=== PATIENT | female | born 1960 | race Two or more races ===

== ENCOUNTER 2017-03-17 06:49 | Inpatient (IN) | payer OTHER ==
[2017-03-14 12:33] VITALS: BMI 25.5
[2017-03-17] MEDS ORDERED: DEXAMETHASONE SOD PHOSPHATE 4 MG/1 ML VIAL ONE (07:21)
[2017-03-17] MEDS ORDERED: fentaNYL CITRATE 250 MCG/5 ML VIAL ONE (07:21)
[2017-03-17] MEDS ORDERED: ePHEDrine SULFATE 50 MG/1 ML AMPULE ONE ×2 (07:21→08:13)
[2017-03-17] MEDS ORDERED: PROPOFOL 20 ML ONE ×22 (07:21→11:42)
[2017-03-17] MEDS ORDERED: PHENYLEPHRINE HCL 10 MG/1 ML SINGLE DOSE VIAL ONE (07:21)
[2017-03-17] MEDS ORDERED: SUCCINYLCHOLINE CHLORIDE 200 MG/10 ML VIAL ONE (07:21)
[2017-03-17] MEDS ORDERED: LIDOCAINE HCL/PF 2% SDV 5ML VIAL ONE (07:21)
[2017-03-17] MEDS ORDERED: MIDAZOLAM HCL 2 MG/2 ML SINGLE DOSE VIAL ONE ×2 (07:22)
[2017-03-17] MEDS ORDERED: ROCURONIUM BROMIDE 50 MG/5 ML VIAL ONE (07:22)
[2017-03-17] MEDS ORDERED: HEPARIN NA (PORCINE) 5,000 UNITS/ML 1ML VIAL ONE ×2 (07:29→07:33)
[2017-03-17] MEDS ORDERED: THROMBIN (BOVINE) 5,000 UNIT VIAL TP ONE (07:29)
[2017-03-17] MEDS ORDERED: DESFLURANE GAS 240 ML BOTTLE IH ONE (07:30)
[2017-03-17] MEDS ORDERED: SODIUM CHLORIDE 0.9% P/F 10 ML VIAL IJ ONE (08:12)
[2017-03-17] MEDS ORDERED: VANCOMYCIN 1,000 MG VIAL (RESTRICTED TO ID ONLY) IVPB ONE (08:17)
[2017-03-17] MEDS ORDERED: CLINDAMYCIN 900 MG PREMIX BAG IVPB ONE (09:00)
[2017-03-17] MEDS ORDERED: MINERAL OIL 25 ML OIL ONE (11:00)
[2017-03-17] MEDS ORDERED: HYDROmorphone HCL CARPU-JECT 2 MG/1 ML DISP.SYRIN ONE (11:28)
[2017-03-17] MEDS ORDERED: ALBUMIN HUMAN 5% 250 ML IV SOLUTION IVPB ONE (13:00)
[2017-03-17] MEDS ORDERED: BENZOIN/ALOE VERA/STORAX/TOLU 58 ML BOTTLE ONE (14:08)
--- NOTE | 2017-03-17 14:40 | OP ---
Operative Note - Note: Operative Date: 03/17/17 Pre-Operative Diagnosis: 1. L4/5 anterolisthesis; instability. 2. L3-S1 spinal stenosis Operation: 1. L3, L4, L5 laminectomies. 2. L3-S1 foraminal decompressions. 3. L3/4, L4/5, L5/S1 PLIF. 4. L3-S1 PISF Surgeon: Juvencio Williamson Merchandise Flow Team Leader: Dino Williamson Anesthesiologist/INFORMATICS MANAGER: Ryland Chawla Anesthesia: General Specimens Removed: L3/4, L4/5, L5/S1 disc Estimated Blood Loss (mls): 700 Drains & Tubes with Location: 1 x superficial Bacilio drain SET TO GRAVITY - NOT SET TO SUCTION Drains, Volume Out (mls): 4,200 (3.7L crystalloid; 500cc albumin) Blood Volume Replaced (mls): 250 (cell saver) Operative Report Dictated: Yes
--- NOTE | 2017-03-17 14:43 | PN ---
Progress Note (short form) - Note Progress Note: 56F s/p L3, L4, L5 laminectomies, L3-S1 foraminal decompressions, L3/4, L4/5, L5 /S1 PLIF, & L3-S1 PISF POD #0. -Admit to ICU post-op. -Admit to medicine hospitalist service. -Pain control. -Incentive spirometry/aggressive pulmonary toilet. -Mechanical DVT PPx. only. -PT/OT/Rehab, OOB. -WBAT B/L LE. -1 x superficial Bacilio drain SET TO GRAVITY -- DO NOT SET DRAIN TO SUCTION . -Boateng care. -D/C boateng when patient is ambulating. -Litzy-op Abx x 24 hrs. -Discharge planning.
[2017-03-17] MEDS ORDERED: ALBUTEROL SO4 18 GM HFA INHALER IH SCH (14:45)
[2017-03-17] MEDS ORDERED: ACETAMINOPHEN 1000 MG/100 ML VIAL (NON FORMULARY) IVPB PRN ×2 (14:46→17:19)
[2017-03-17] MEDS ORDERED: KETOROLAC TROMETHAMINE 30 MG/1 ML VIAL IVPUSH PRN (14:46)
--- NOTE | 2017-03-17 14:54 | PN ---
Progress Note (short form) - Note Progress Note: -NPO until flatus.
[2017-03-17] MEDS ORDERED: LACTATED RINGERS SOLUTION 1,000 ML IV SCH ×2 (15:00→15:15)
[2017-03-17] MEDS ORDERED: PROMETHAZINE HCL 25 MG/1 ML VIAL IVPUSH PRN (15:05)
[2017-03-17] MEDS ORDERED: ONDANSETRON 4 MG/2 ML VIAL IVPUSH PRN ×2 (15:05)
[2017-03-17] MEDS ORDERED: PROMETHAZINE HCL 25 MG/1 ML VIAL IVPB PRN (15:05)
[2017-03-17] MEDS: HYDROmorphone *PCA* 10MG/50ML DISP.SYRIN PCA SCH (15:15)
[2017-03-17] MEDS ORDERED: BUDESONIDE/FORMETEROL FUMARATE 160/4.5 mcg INHALER IH SCH (15:30)
[2017-03-17] MEDS ORDERED: ACETAMINOPHEN INJECTION 100 ML IVPB ONE (15:55)
[2017-03-17] MEDS ORDERED: KETOROLAC TROMETHAMINE 30 MG/1 ML VIAL ONE ×2 (15:55→16:29)
[2017-03-17] MEDS ORDERED: HYDROmorphone *PCA* 10MG/50ML DISP.SYRIN PCA ONE (15:55)
[2017-03-17] MEDS ORDERED: ALBUTEROL SO4 0.083% IH SOL 2.5 MG/3 ML VIAL.NEB. NEB SCH (16:00)
[2017-03-17] MEDS ORDERED: CLINDAMYCIN 900 MG PREMIX IVPB 900 MG/50 ML BAG IVPB SCH (18:00)
[2017-03-17] MEDS ORDERED: PT OWN MED DRAWER 7, Y5N ONE (19:32)
[2017-03-17] MEDS: CLINDAMYCIN 900 MG PREMIX IVPB 900 MG/50 ML BAG IVPB SCH (19:38)
[2017-03-17] MEDS: ELECTROLYTE-148 SOLN 1,000 ML IV SCH (19:43)
[2017-03-17] MEDS ORDERED: VANCOMYCIN 1,000 MG in DEXTROSE 5%-WATER - 250 ML IVPB ONE (20:00)
[2017-03-17] MEDS ORDERED: ALBUTEROL SO4 18 GM HFA INHALER IH PRN (20:45)
--- NOTE | 2017-03-17 21:16 | CONSULT ---
Consult Consult Specialty:: Pulm/CCM Reason for Consultation:: s/p L3, L4, L5 laminectomies, L3-S1 foraminal decompressions - History of Present Illness History of Present Illness: This is a 56 yo woman PMH: HL, asthma, seizure d/o of unclear etiology had two seizures in 2017 currently on keprra and chronic back and sciatica pain r/t L4/5 anterolisthesis; instability and L3-S1 spinal stenosis now s/p L3, L4, L5 laminectomies, L3-S1 foraminal decompressions. Patiernt seen in ICU VSS, pain controlled. - History Source History Provided By: Patient, Medical Record Limitations to Obtaining History: No Limitations - Past Medical History DIESEL POWER MECHANIC: Yes: Seizure Cardio/Vascular: Yes: Hyperlipdemia Pulmonary: Yes: Asthma - Past Surgical History Past Surgical History: Yes: Laminectomy - Alcohol/Substance Use Hx Alcohol Use: Yes (ON VACATION) - Smoking History Smoking history: Former smoker Have you smoked in the past 12 months: Yes Home Medications - Allergies Allergies/Adverse Reactions: Allergies Allergy/AdvReac Type Severity Reaction Status Date / Time ceftriaxone [From Rocephin] Allergy Hives Verified 03/14/17 12:19 moxifloxacin [From Avelox] Allergy Hives Verified 03/14/17 12:19 - Home Medications Home Medications: Ambulatory Orders Aclidinium [place] [Tudorza Pressair] 400 mcg IH DAILY 03/14/17 Albuterol 0.083% Nebulizer [place] [Ventolin 0.083%] 1 neb NEB QID 03/14/17 Albuterol Sulfate Inhaler - [Ventolin Hfa Inhaler -] 2 inh PO Q6H 03/14/17 Cyclobenzaprine HCl 10 mg PO HS PRN 03/14/17 Folic Acid 1 mg PO DAILY 03/14/17 Levetiracetam [Keppra] 250 mg PO DAILY 03/14/17 Montelukast Sodium [Singulair] 10 mg PO DAILY 03/14/17 Oxycodone HCl/Acetaminophen [Percocet 10-325 mg Tablet] 1 each PO BID 03/14/17 Primidone [Mysoline] 250 mg PO DAILY 03/14/17 Roflumilast [Daliresp] 500 mcg PO DAILY 03/14/17 Ropinirole HCl [Requip] 3 mg PO HS 03/14/17 Salmeterol/Fluticasone [Advair 500Mcg/50Mcg] 1 inh PO BID 03/14/17 Simvastatin 40 mg PO DAILY 03/14/17 Zolpidem Tartrate [Ambien Cr] 12.5 mg PO HS 03/14/17 Family Disease History - Family Disease History Family History: Unremarkable Review of Systems - Review of Systems Musculoskeletal: reports: Muscle Pain, Muscle Cramps Physical Exam Vital Signs: Vital Signs Temperature 98.0 F 03/17/17 17:15 Pulse Rate 101 H 03/17/17 20:00 Respiratory Rate 21 03/17/17 20:00 Blood Pressure 108/74 03/17/17 20:00 O2 Sat by Pulse Oximetry (%) 96 03/17/17 20:23 Current Medications Acetaminophen (Ofirmev Injection -) 1,000 mg IVPB Q8H PRN PRN Reason: PAIN LEVEL 6-10 Stop: 03/18/17 14:45 Albuterol Sulfate (Ventolin 0.083% Nebulizer Soln -) 1 amp NEB RQID KAMI Albuterol Sulfate (Ventolin Hfa Inhaler -) 2 puff IH Q6H K[facility]I Budesonide/Formoterol Fumarate (Symbicort 160/4.5mcg -) 2 puff IH BID K[facility]I Chlorhexidine Gluconate (Hibiclens For Decolonization -) 1 applic TP HS KAMI Hydromorphone HCl (Dilaudid Mine Engineering Supervisor -) 10 mg BATTERY STACKER BATTERY STACKER KAMI PRN Reason: Protocol Stop: 03/24/17 15:05 Last Admin: 03/17/17 15:15 Dose: 10 mg Clindamycin Phosphate (Cleocin 900 Mg Premix Ivpb -) 900 mg in 50 mls @ 100 mls /hr IVPB Q8H-IV KAMI Stop: 03/18/17 10:29 Last Admin: 03/17/17 19:38 Dose: 100 mls/hr Parenteral Electrolytes (Plasma-Lyte 148 -) 1,000 mls @ 125 mls/hr IV ASDIR KAMI Last Admin: 03/17/17 19:43 Dose: 125 mls/hr Vancomycin HCl 1,000 mg/ (Dextrose) 250 mls @ 166.667 mls/hr IVPB ONCE ONE PRN Reason: Protocol Stop: 03/17/17 21:29 Last Admin: 03/17/17 20:16 Dose: 166.667 mls/hr Ketorolac Tromethamine (Toradol Injection -) 30 mg IVPUSH Q6H PRN PRN Reason: PAIN LEVEL 6-10 Stop: 03/22/17 14:45 Levetiracetam (Keppra -) 250 mg PO DAILY [facility] Montelukast Sodium (Singulair -) 10 mg PO HS [facility] Mupirocin (Bactroban Ointment (For Decolonization) -) 1 applic NS BID [facility] Stop: 03/22/17 21:59 Non-Formulary Medication (Aclidinium [place] [Tudorza Pressair]) 400 mcg IH DAILY [facility] Ondansetron HCl (Zofran Injection) 4 mg IVPUSH Q6H PRN PRN Reason: NAUSEA AND/OR VOMITING Primidone (Mysoline -) 250 mg PO DAILY [facility] Promethazine HCl (Phenergan Injection -) 12.5 mg IVPUSH Q6H PRN PRN Reason: NAUSEA-FOR RESCUE AFTER 15 MIN Ropinirole HCl (Requip -) 3 mg PO HS [facility] Constitutional: Yes: Calm Cardiovascular: Yes: Regular Rate and Rhythm, S1, S2 Respiratory: Yes: CTA Bilaterally Gastrointestinal: Yes: Normal Bowel Sounds, Soft Edema: No Wound/Incision: Yes: Other (DEBBIE w/ sangounous drainage) Neurological: Yes: Alert, Oriented Psychiatric: Yes: Alert, Oriented Problem List - Problems (1) Asthma Code(s): J45.909 - UNSPECIFIED ASTHMA, UNCOMPLICATED (2) Combined hyperlipidemia Code(s): E78.2 - MIXED HYPERLIPIDEMIA (3) Back pain at L4-L5 level Code(s): M54.5 - LOW BACK PAIN (4) Seizure disorder Code(s): G40.909 - EPILEPSY, UNSP, NOT INTRACTABLE, WITHOUT STATUS EPILEPTICUS Assessment/Plan ICU overnight monitor DEBBIE drainage pain control ABX per surgery incentive [place] O2 for sat >90% PT/OT cont AED advance diet per surgery bowel regimen DVT prophylaxis: SCDs Boerem ACNP Pulm/CCM CCT: 35m
[2017-03-17] MEDS: ALBUTEROL SO4 0.083% IH SOL 2.5 MG/3 ML VIAL.NEB. NEB SCH (21:30)
[2017-03-17] MEDS: MUPIROCIN 2% TOPICAL OINTMENT FOR DECOLONIZATION NS SCH (22:00)
[2017-03-17] MEDS ORDERED: rOPINIRole HCL 3 MG TABLET PO SCH (22:00)
[2017-03-17] MEDS: CHLORHEXIDINE GLUCONATE 4% CLEANSER FOR DECOLONIZATION TP SCH (22:00)
[2017-03-17] MEDS: rOPINIRole HCL 3 MG TABLET PO SCH (22:01)
[2017-03-17] MEDS: BUDESONIDE/FORMETEROL FUMARATE 160/4.5 mcg INHALER IH SCH (22:01)
[2017-03-17] MEDS: MONTELUKAST NA 10 MG TABLET PO SCH (22:01)
[2017-03-18] MEDS: CLINDAMYCIN 900 MG PREMIX IVPB 900 MG/50 ML BAG IVPB SCH ×2 (01:43→10:09)
[2017-03-18 06:26] LABS: HEMATOCRIT 22.6 % (32.4-45.2); HEMOGLOBIN 7.4 GM/dL (10.7-15.3); MCH 30.5 pg (25.7-33.7); MCHC 32.6 g/dl (32.0-36.0); MEAN CELL VOLUME 93.4 fl (80-96); MEAN PLT VOLUME 9.2 fl (7.5-11.1); PLATELET COUNT 204 K/MM3 (134-434); RBC 2.42 M/mm3 (3.60-5.2); RDW 14.3 % (11.6-15.6); WHITE BLOOD COUNT 9.3 K/mm3 (4.0-10.0)
[2017-03-18] MEDS: DOCUSATE SODIUM 100 MG CAPSULE (FP) PO SCH ×3 (06:27→21:57)
[2017-03-18 06:51] LABS: ANION GAP 7 (8-16); BLOOD UREA NITROGEN 12 mg/dL (7-18); CALCIUM 7.1 mg/dL (8.5-10.1); CHLORIDE 107 mmol/L (98-107); CO2 28 mmol/L (21-32); CREATININE 0.5 mg/dL (0.55-1.02); GLUCOSE,RANDOM 107 mg/dL (74-106); POTASSIUM 3.9 mmol/L (3.5-5.1); SODIUM 142 mmol/L (136-145)
--- NOTE | 2017-03-18 07:16 | PN ---
Physical Exam: SUBJECTIVE: Patient seen and examined. S/p laminectomy. Had clears yesterday post surgery but has not passed flatus, so surgeon asked to be NPO till after flatus. Pain controlled on meds. C/o of L lower extremity weakness OBJECTIVE: Vital Signs Period Temp Pulse Resp BP Sys/Chowdary Pulse Ox Last 24 Hr 98 F-98.4 F 74-101 12-24 82-133/56-87 96-100 Intake & Output 03/17/17 03/17/17 03/18/17 11:59 23:59 11:59 Intake Total 3700 1650 1700 Output Total 925 1045 880 Balance 2775 605 820 Weight 72.802 kg Intake: IV 3700 300 1500 Plasma-Lyte 148 - 1,000 1500 ml @ 125 mls/hr IV ASDIR KAMI Rx#:[id number] Oral 600 200 Blood Product 750 Output: Drainage 245 80 Left Flank 120 80 Urine 225 800 800 Boateng 200 800 Estimated Blood Loss 700 Other: Voiding Method Indwelling Catheter Weight Measurement Method Built in [facility] GENERAL: The patient is awake, alert, out of bed in chair (with assistance) off NC sating well on RA. Baseline essential tremors noted. HEAD: Normal with no signs of trauma. EYES: Bilaterally reactive pupils. ENT: oropharynx clear without exudates, moist mucous membranes. NECK: Trachea midline, full range of motion, supple. LUNGS: reduced breath sounds bases HEART: Regular rate and rhythm, S1, S2 ABDOMEN: Soft, nontender, nondistended, reduced bowel sounds EXTREMITIES: 2+ pulses, warm, well-perfused, no edema, compression socks on. RLE - 5/5 dorsi/plantar flexion, LLE 4/5- dorsi/plantar flexion NEUROLOGICAL: Cranial nerves II through XII grossly intact. Normal speech, gait not observed. L flank drain, L midline back dressing PSYCH: Normal mood, normal affect. Lines: Boateng, RUE, LUE, L flank drain CBC, BMP 03/18/17 05:00 03/18/17 05:00 Laboratory Results - last 24 hr 03/17/17 03/17/17 03/18/17 07:00 08:03 05:00 WBC 9.3 RBC 2.42 L Hgb 7.4 L Hct 22.6 L MCV 93.4 MCH 30.5 MCHC 32.6 RDW 14.3 Plt Count 204 MPV 9.2 Sodium Potassium Chloride Carbon Dioxide Anion Gap BUN Creatinine Random Glucose Calcium Blood Type A NEGATIVE A NEGATIVE Antibody Screen Negative Crossmatch IS Only See Detail See Detail 03/18/17 05:00 WBC RBC Hgb Hct MCV MCH MCHC RDW Plt Count MPV Sodium 142 Potassium 3.9 Chloride 107 Carbon Dioxide 28 Anion Gap 7 L BUN 12 Creatinine 0.5 L Random Glucose 107 H Calcium 7.1 L Blood Type Antibody Screen Crossmatch IS Only Active Medications Generic Name Dose Route Start Last Admin Trade Name Freq PRN Reason Stop Dose Admin Acetaminophen 1,000 mg 03/17/17 17:19 Ofirmev Injection - IVPB 03/18/17 14:45 Q8H PRN PAIN LEVEL 6-10 Albuterol Sulfate 1 amp 03/17/17 20:00 Ventolin 0.083% Nebulizer Soln - NEB RQID KAMI Albuterol Sulfate 2 puff 03/17/17 20:45 Ventolin Hfa Inhaler - IH Q6H PRN SHORT OF BREATH/WHEEZING Budesonide/Formoterol Fumarate 2 puff 03/17/17 22:00 03/17/17 22:01 Symbicort 160/4.5mcg - IH 2 puff BID KAMI Administration Chlorhexidine Gluconate 1 applic 03/17/17 22:00 03/17/17 22:00 Hibiclens For Decolonization - TP 1 applic HS KAMI Administration Docusate Sodium 100 mg 03/18/17 06:00 03/18/17 06:27 Colace - PO 100 mg TID KAMI Administration Hydromorphone HCl 10 mg 03/17/17 15:15 03/17/17 15:15 Dilaudid Physician Practice Consultant - BEAR KEEPER 03/24/17 15:05 10 mg BEAR KEEPER KAMI Administration Protocol Clindamycin Phosphate 900 mg in 50 mls @ 100 mls/hr 03/17/17 18:00 03/18/17 01:43 Cleocin 900 Mg Premix Ivpb - IVPB 03/18/17 10:29 100 mls/hr Q8H-IV KAMI Administration Parenteral Electrolytes 1,000 mls @ 125 mls/hr 03/17/17 17:19 03/17/17 19:43 Plasma-Lyte 148 - IV 125 mls/hr ASDIR KAMI Administration Ketorolac Tromethamine 30 mg 03/17/17 17:19 Toradol Injection - IVPUSH 03/22/17 14:45 Q6H PRN PAIN LEVEL 6-10 Levetiracetam 250 mg 03/18/17 10:00 Keppra - PO DAILY KAMI Montelukast Sodium 10 mg 03/17/17 22:00 03/17/17 22:01 Singulair - PO 10 mg HS KAMI Administration Mupirocin 1 applic 03/17/17 22:00 03/17/17 22:00 Bactroban Ointment (For Decolonization) - NS 03/22/17 21:59 1 applic BID KAMI Administration Ondansetron HCl 4 mg 03/17/17 15:05 Zofran Injection IVPUSH Q6H PRN NAUSEA AND/OR VOMITING Primidone 250 mg 03/18/17 10:00 Mysoline - PO DAILY KAMI Promethazine HCl 12.5 mg 03/17/17 15:05 Phenergan Injection - IVPUSH Q6H PRN NAUSEA-FOR RESCUE AFTER 15 MIN Ropinirole HCl 3 mg 03/17/17 22:00 03/17/17 22:01 Requip - PO 3 mg HS KAMI Administration Senna 2 tab 03/18/17 22:00 Senna - PO HS KAMI Tiotropium [place] 1 puff 03/18/17 10:00 Spiriva - IH DAILY KAMI ASSESSMENT/PLAN: 56 yo F with PMHx asthma, seizure disorders, chronic back pain now POD1 s/p L3.L4 laminectomy, L3-S1 decompressions Neuro/KATLIN: chronic back pain s/p laminectomy Seizure disorder Essential tremors AAO x3 Ropinorole Primidone 250mg PO daily Keppra 250mg PO daily Clindamycin -perioperative- given Pain mx- Dilaudid, ketorolac, Iv tylenol Out of bed with assistance Physical therapy Incentive spirometry Requesting a rehab facility on discharge CBC Resp: Asthma On room air Singulair Spiriva Symbicort Albuterol inhaler Albuterol nebulizer GI/Renal/ Lytes/Lines NPO until passes flatus Boateng-D/c BMP Monitor Lines: LUE, RUE peripheral lines, L flank hong drain, boateng Prophylaxis: SCDs Dispo: Transfer out of ICU Visit type - Emergency Visit Emergency Visit: No - New Patient This patient is new to me today: Yes Date on this admission: 03/18/17 - Critical Care Critical Care patient: Yes Total Critical Care Time (in minutes): 37 Critical Care Statement: The care of this patient involved high complexity decision making to prevent further life threatening deterioration of the patient 's condition and/or to evaluate & treat vital organ system(s) failure or risk of failure. - Discharge Referral Referred to [facility] No
[2017-03-18 08:06] LABS: MAGNESIUM 1.6 mg/dL (1.8-2.4); PHOSPHOROUS 2.8 mg/dL (2.5-4.9)
[2017-03-18 08:10] LABS: ALBUMIN 2.6 g/dl (3.4-5.0); ALK PHOS 72 U/L (45-117); ANION GAP 6 (8-16); BILIRUBIN,TOTAL 0.4 mg/dL (0.2-1.0); BLOOD UREA NITROGEN 13 mg/dL (7-18); CALCIUM 7.1 mg/dL (8.5-10.1); CHLORIDE 108 mmol/L (98-107); CO2 28 mmol/L (21-32); CREATININE 0.5 mg/dL (0.55-1.02); GLUCOSE,RANDOM 107 mg/dL (74-106); POTASSIUM 3.9 mmol/L (3.5-5.1); SGOT/AST 25 U/L (15-37); SGPT/ALT 24 U/L (12-78); SODIUM 142 mmol/L (136-145); TOT PROT 4.9 g/dl (6.4-8.2)
[2017-03-18] MEDS: ALBUTEROL SO4 0.083% IH SOL 2.5 MG/3 ML VIAL.NEB. NEB SCH ×4 (08:13→21:00)
[2017-03-18] MEDS ORDERED: PT OWN MED DRAWER 7, Y5N ONE (09:51)
[2017-03-18] MEDS ORDERED: MONTELUKAST NA 10 MG TABLET PO SCH (10:00)
[2017-03-18] MEDS ORDERED: levETIRAcetam 250 MG TABLET (FP) PO SCH (10:00)
[2017-03-18] MEDS ORDERED: TIOTROPIUM BROMIDE 18 MCG/INH (DEVICE W/ 5 CAPSULES) IH SCH (10:00)
[2017-03-18] MEDS ORDERED: PRIMIDONE 250 MG TABLET PO SCH (10:00)
[2017-03-18] MEDS: KETOROLAC TROMETHAMINE 30 MG/1 ML VIAL IVPUSH PRN ×2 (10:20→16:33)
--- NOTE | 2017-03-18 11:06 | PN ---
Progress Note (short form) - Note Progress Note: Anesthesia postop note and pain management follow up 56 y/o f s/p GA for L3-S1 PLIF, dilaudid ACID TANK LINER for postop pain management POD#1, aaox3, vss, pain well controlled on aircraft line assembler, no complaints, will continue aircraft line assembler today. No anesthesia complications.
--- NOTE | 2017-03-18 11:24 | PN ---
Teaching Attending Note Name of Resident: Elizabeth Vieyra ATTENDING PHYSICIAN STATEMENT I saw and evaluated the patient. I reviewed the resident's note and discussed the case with the resident. I agree with the resident's findings and plan as documented. SUBJECTIVE: Pt seen and examined in the ICU. Pain controlled with current regimen. Nauseous with medications but improved with zofran. Reports LLE weakness. OBJECTIVE: Last Vital Signs Temp Pulse Resp BP Pulse Ox 98.3 F 96 H 17 96/69 96 03/18/17 10:00 03/18/17 10:00 03/18/17 10:00 03/18/17 10:00 03/17/17 20:23 Intake & Output 03/15/17 03/16/17 03/17/17 03/18/17 23:59 23:59 23:59 23:59 Intake Total 5350 1700 Output Total 1970 880 Balance 3380 820 Weight 72.802 kg Gen: NAD in chair Heart: RRR Lung: decreased breath sounds at the bases Abd: soft, nontender Ext: no edema CBC, BMP 03/18/17 05:00 03/18/17 05:00 Active Medications Acetaminophen (Ofirmev Injection -) 1,000 mg IVPB Q8H PRN PRN Reason: PAIN LEVEL 6-10 Stop: 03/18/17 14:45 Albuterol Sulfate (Ventolin 0.083% Nebulizer Soln -) 1 amp NEB RQID [facility] Last Admin: 03/18/17 08:13 Dose: 1 amp Albuterol Sulfate (Ventolin Hfa Inhaler -) 2 puff IH Q6H PRN PRN Reason: SHORT OF BREATH/WHEEZING Budesonide/Formoterol Fumarate (Symbicort 160/4.5mcg -) 2 puff IH BID [facility] Last Admin: 03/17/17 22:01 Dose: 2 puff Chlorhexidine Gluconate (Hibiclens For Decolonization -) 1 applic TP HS [facility] Last Admin: 03/17/17 22:00 Dose: 1 applic Docusate Sodium (Colace -) 100 mg PO TID [facility] Last Admin: 03/18/17 06:27 Dose: 100 mg Hydromorphone HCl (Dilaudid Advertising Specialist -) 10 mg MACHINE CUTTER MACHINE CUTTER [facility] PRN Reason: Protocol Stop: 03/24/17 15:05 Last Admin: 03/17/17 15:15 Dose: 10 mg Parenteral Electrolytes (Plasma-Lyte 148 -) 1,000 mls @ 125 mls/hr IV ASDIR [facility] Last Admin: 03/17/17 19:43 Dose: 125 mls/hr Ketorolac Tromethamine (Toradol Injection -) 30 mg IVPUSH Q6H PRN PRN Reason: PAIN LEVEL 6-10 Stop: 03/22/17 14:45 Last Admin: 03/18/17 10:20 Dose: 30 mg Levetiracetam (Keppra -) 250 mg PO DAILY [facility] Montelukast Sodium (Singulair -) 10 mg PO [facility] Last Admin: 03/17/17 22:01 Dose: 10 mg Mupirocin (Bactroban Ointment (For Decolonization) -) 1 applic NS BID [facility] Stop: 03/22/17 21:59 Last Admin: 03/17/17 22:00 Dose: 1 applic Ondansetron HCl (Zofran Injection) 4 mg IVPUSH Q6H PRN PRN Reason: NAUSEA AND/OR VOMITING Last Admin: 03/18/17 10:10 Dose: 4 mg Primidone (Mysoline -) 250 mg PO DAILY [facility] Promethazine HCl (Phenergan Injection -) 12.5 mg IVPUSH Q6H PRN PRN Reason: NAUSEA-FOR RESCUE AFTER 15 MIN Ropinirole HCl (Requip -) 3 mg PO HS [facility] Last Admin: 03/17/17 22:01 Dose: 3 mg Senna (Senna -) 2 tab PO [facility] Tiotropium [place] (Spiriva -) 1 puff IH DAILY [facility] ASSESSMENT AND PLAN: L4-L5 Anterolisthesis/Instability L3-S1 Spinal Stenosis s/p L3-L5 Laminectomies/L3-S1 Foraminal Decompressions/Fusions Asthma Seizure Disorder Hyperlipidemia Anemia - pain control - incentive spirometry - monitor drain output - inhaled bronchodilators - monitor H/H - rehab/PT - PO as tolerated - DVT prophylaxis - can transfer to floor if ok with surgery
[2017-03-18] MEDS: MUPIROCIN 2% TOPICAL OINTMENT FOR DECOLONIZATION NS SCH ×2 (11:41→21:56)
[2017-03-18] MEDS: levETIRAcetam 250 MG TABLET (FP) PO SCH (11:41)
[2017-03-18] MEDS: PRIMIDONE 250 MG TABLET PO SCH (11:41)
[2017-03-18] MEDS: TIOTROPIUM BROMIDE 18 MCG/INH (DEVICE W/ 5 CAPSULES) IH SCH (11:42)
[2017-03-18] MEDS: BUDESONIDE/FORMETEROL FUMARATE 160/4.5 mcg INHALER IH SCH ×2 (11:43→21:58)
--- NOTE | 2017-03-18 11:44 | OP ---
DATE OF OPERATION: 03/17/2017 SURGEON: Juvencio Williamson MD AGENCY SALES DEVELOPMENT ASSOCIATE: Dino Williamson MD PREOPERATIVE DIAGNOSIS: Spinal stenosis L3 through S1, with associated segmental instability due to spondylolisthesis L4-5. POSTOPERATIVE DIAGNOSIS: Spinal stenosis L3 through S1, with associated segmental instability due to spondylolisthesis L4-5. OPERATION PERFORMED: 1. Laminectomy L3, 4, 5, S1 with undercutting superior fasciectomy. 2. L3-4, L4-5, L5-S1 posterior lumbar interbody fusion with anterior arthrodesis and cage at each level. 3. Pedicle screw instrumentation L3 through S1. 4. Posterolateral arthrodesis L3 through S1. 5. Incidental durotomy with repair. 6. Use of biplanar fluoroscopy and intraoperative neural monitoring. 7. Use of bone marrow aspirate concentrate with autologous bone grafts. ANTIBIOTICS GIVEN: 1 g vancomycin, 900 mg clindamycin. BLOOD LOSS: Approximately 800 mL, 600 mL Cell Saver utilized. DESCRIPTION OF PROCEDURE: Patient brought in operating room, placed prone on gel rolls, carefully positioned pelvis into anteversion as best we could by extension of the hips as best we could, to best maintain lumbar lordosis. The skin was prepped with Betadine scrub solution, wiped with alcohol, Duraprep applied, a window drape applied. Preoperative lateral fluoroscopic x-ray helped align skin incision related to deep bony anatomy. In this position with all appropriate areas padded including strict attention to eyes, as well as ulnar nerves and brachial plexus, the skin was opened from the tip of the spinous process of L2 to the tip of the spinous process of S1. A subperiosteal dissection was performed, once the dissection had been taken down directly through the skin, subcutaneous fat, to the superior spinous region of the posterior elements of the spine, subperiosteal dissection down the spinous process, over the lamina, across the facet joints, into the valley of the intertransverse plane, up to the tips of the transverse processes. All bone was exposed for appropriate bone graft bed association. The ala of the sacrum was also was denuded of soft tissue. Lateral fluoroscopic x-ray helped orientate in terms of level to be operated on. Using [place] rongeurs, number 5, 4 and 6 and [place] up-cuts, the entire laminae of L3-4-5 resected with all ligamentum flavum. Significant diffuse spinal stenosis encountered at most areas. In order to excise the superior facets, osteotomies were performed longitudinally from L3 right down to S1, thus splitting the pars interarticularis, taking out the inferior aspect of each facet, and this gave easy access to the superior stenosing facets of each level and each one subsequently subjected to an undercutting fasciectomy. The entire thickened dura was completely freed. A small dural defect; the arachnoid was intact, and we repaired the small dural tear with 6-0 Prolene suture. Valsalva maneuver revealed that it was completely sealed. Once this had been performed, each disk was dealt with separately. Theca was retracted at L3-4 as well as L4-5 from the right to the left, at L5-S1 from the left to right. Once the theca had been retracted, the epidural veins were cauterized with bipolar Bovie, the disks were clearly identified. The theca held out of harm's way and each disk treated in exactly the same way with elliptical annulectomy, each subjected to shaving up to size 11. All disk material was removed with pituitary rongeurs. Serrated curets helped insure that the superior and inferior end plates of each disk space and disk level was free of any soft tissues. Once the disks were emptied out completely and end plates revealed healthy bleeding bone, each interbody space was filled with autologous bone that was harvested from the posterior elements, milled in a [place] mill, packed into the interbody space in each cage seated, for each level was a 22 x 12 mm 5-degree lordotic cage, each one packed with graft. The pedicles then were identified using anatomic guidelines and a drill with a 4-5 drill bit was placed into each pedicle. The pedicle screws measured 40 x 6 mm. The rods were contoured to the actual screw heads prior to insertion of screw head, each screw was tested with intraoperative neural monitoring. Each screw was verified with lateral fluoroscopic x-ray. Each screw was safe in terms of all neural monitor parameter readings except in the left S1 screw measured 10 mA, but the screw was carefully inspected, and the entire pedicle on the medial side was palpated. There was no breach of any screw that could be palpated. We do know that this is acceptable for S1 at a reading of 10. The rods were fixed with the appropriate cap devices and appropriate persuasion equipment. No crosslink utilized. Once the instrumentation had been completed and each interbody cage had been seated, laparoscopic x-rays revealed excellent positioning of the implants. The tissues were washed thoroughly with saline. The intertransverse plane was packed with bone graft. This was a combination of autologous bone with expansion of bone marrow putty and allograft strips. These demineralized strips were placed in each level, each one soaked in concentrated bone marrow aspirate concentrate. Thorough lavage achieved, performed. No complications. Closure as follows. After trimming of the erectus spinae muscle with Huggins scissors, all necrotic and damaged tissue and muscle was removed, the tissues were closed as follows. Fascia 1 Vicryl, subcutaneous 1 and 2-0 Vicryl, skin 3-0 Monocryl with Steri-Strips. Drainage, a superficial Bacilio drain inserted with no suction. Light dry dressing applied. Overall comment: Operation went extremely well, no complications. MD BEBA Santo/[id number] MTDD
[2017-03-18] MEDS: HYDROmorphone *PCA* 10MG/50ML DISP.SYRIN PCA SCH (15:15)
--- NOTE | 2017-03-18 18:32 | HP ---
CHIEF COMPLAINT: PCP: HISTORY OF PRESENT ILLNESS: 56 year-old female with a PMH significant for HLD, asthma, seizure disorder and L4-L5 anterolisthesis/instability, and L3-S1 spinal stenosis. Patient was admitted to the hospital on 03/17/[address] Juvencio Williamson. Patient is s/p L3- L4-L5 laminectomies, L3-S1 foraminal decompressions, L3/4, L4/5, L5/S1 posterior lumbar interbody fusion, L3-S1 PISF, POD #1. Recent Travel No PAST MEDICAL HISTORY: Hyperlipidemia Asthma Seizure disorder PAST SURGICAL HISTORY: As above Social History: Smoking: former Alcohol: social Drugs: no Family History: Allergies ceftriaxone [From Rocephin] Allergy (Verified 03/14/17 12:19) Hives moxifloxacin [From Avelox] Allergy (Verified 03/14/17 12:19) Hives HOME MEDICATIONS: Home Medications Medication Instructions Recorded Aclidinium [place] [Tudorza 400 mcg IH DAILY 03/14/17 Pressair] Albuterol 0.083% Nebulizer [place] 1 neb NEB QID 03/14/17 [Ventolin 0.083%] Albuterol Sulfate Inhaler - 2 inh PO Q6H 03/14/17 [Ventolin Hfa Inhaler -] Cyclobenzaprine HCl 10 mg PO HS PRN 03/14/17 Folic Acid 1 mg PO DAILY 03/14/17 Levetiracetam [Keppra] 250 mg PO DAILY 03/14/17 Montelukast Sodium [Singulair] 10 mg PO DAILY 03/14/17 Oxycodone HCl/Acetaminophen 1 each PO BID 03/14/17 [Percocet 10-325 mg Tablet] Primidone [Mysoline] 250 mg PO DAILY 03/14/17 Roflumilast [Daliresp] 500 mcg PO DAILY 03/14/17 Ropinirole HCl [Requip] 3 mg PO HS 03/14/17 Salmeterol/Fluticasone [Advair 1 inh PO BID 03/14/17 500Mcg/50Mcg] Simvastatin 40 mg PO DAILY 03/14/17 Zolpidem Tartrate [Ambien Cr] 12.5 mg PO HS 03/14/17 REVIEW OF SYSTEMS CONSTITUTIONAL: Absent: fever, chills, diaphoresis, generalized weakness, malaise, loss of appetite, weight change HEENT: Absent: rhinorrhea, nasal congestion, throat pain, throat swelling, difficulty swallowing, mouth swelling, ear pain, eye pain, visual changes CARDIOVASCULAR: Absent: chest pain, syncope, palpitations, irregular heart rate, lightheadedness , peripheral edema RESPIRATORY: Absent: cough, shortness of breath, dyspnea with exertion, orthopnea, wheezing, stridor, hemoptysis GASTROINTESTINAL: Absent: abdominal pain, abdominal distension, nausea, vomiting, diarrhea, constipation, melena, hematochezia GENITOURINARY: Absent: dysuria, frequency, urgency, hesitancy, hematuria, flank pain, genital pain MUSCULOSKELETAL: Absent: myalgia, arthralgia, joint swelling, back pain, neck pain SKIN: Absent: rash, itching, pallor HEMATOLOGIC/IMMUNOLOGIC: Absent: easy bleeding, easy bruising, lymphadenopathy, frequent infections ENDOCRINE: Absent: unexplained weight gain, unexplained weight loss, heat intolerance, cold intolerance NEUROLOGIC: Absent: headache, focal weakness or paresthesias, dizziness, unsteady gait, seizure, mental status changes, bladder or bowel incontinence PSYCHIATRIC: Absent: anxiety, depression, suicidal or homicidal ideation, hallucinations. PHYSICAL EXAMINATION Vital Signs - 24 hr 03/17/17 03/17/17 03/17/17 20:00 20:23 22:00 Temperature 98 F Pulse Rate 101 H 75 Respiratory 21 20 Rate Blood Pressure 108/74 91/65 O2 Sat by Pulse 96 Oximetry (%) 03/18/17 03/18/17 03/18/17 00:00 01:00 02:00 Temperature 98.1 F Pulse Rate 77 84 74 Respiratory 18 16 15 Rate Blood Pressure 97/69 102/75 103/77 O2 Sat by Pulse Oximetry (%) 03/18/17 03/18/17 03/18/17 03:00 04:00 05:00 Temperature Pulse Rate 78 76 74 Respiratory 16 15 16 Rate Blood Pressure 102/69 102/76 82/70 O2 Sat by Pulse Oximetry (%) 03/18/17 03/18/17 03/18/17 06:00 08:00 10:00 Temperature 98.2 F 98.3 F Pulse Rate 81 90 96 H Respiratory 18 12 17 Rate Blood Pressure 103/72 102/75 96/69 O2 Sat by Pulse Oximetry (%) 03/18/17 03/18/17 03/18/17 12:00 14:00 15:15 Temperature 98.0 F Pulse Rate 77 101 H 89 Respiratory 14 13 26 H Rate Blood Pressure 89/59 121/75 121/75 O2 Sat by Pulse Oximetry (%) 03/18/17 03/18/17 03/18/17 15:45 16:00 16:15 Temperature Pulse Rate 90 84 90 Respiratory 17 16 14 Rate Blood Pressure 80/55 80/55 98/65 O2 Sat by Pulse Oximetry (%) 03/18/17 03/18/17 16:45 17:15 Temperature Pulse Rate 90 88 Respiratory 14 16 Rate Blood Pressure 98/65 96/69 O2 Sat by Pulse Oximetry (%) GENERAL: Awake, alert, and fully oriented, in no acute distress. HEAD: Normal with no signs of trauma. EYES: Pupils equal, round and reactive to light, extraocular movements intact, sclera anicteric, conjunctiva clear. No lid lag. EARS, NOSE, THROAT: Ears normal, nares patent, oropharynx clear without exudates. Moist mucous membranes. NECK: Normal range of motion, supple without lymphadenopathy, JVD, or masses. LUNGS: Breath sounds equal, clear to auscultation bilaterally. No wheezes, and no crackles. No accessory muscle use. HEART: Regular rate and rhythm, normal S1 and S2 without murmur, rub or gallop. ABDOMEN: Soft, nontender, not distended, normoactive bowel sounds, no guarding, no rebound, no masses. No hepatomegaly or splenomegaly. MUSCULOSKELETAL: Normal range of motion at all joints. No bony deformities or tenderness. No CVA tenderness. UPPER EXTREMITIES: 2+ pulses, warm, well-perfused. No cyanosis. No clubbing. No peripheral edema. LOWER EXTREMITIES: 2+ pulses, warm, well-perfused. No calf tenderness. No peripheral edema. NEUROLOGICAL: Cranial nerves II-XII intact. Normal speech. Normal gait. PSYCHIATRIC: Cooperative. Good eye contact. Appropriate mood and affect. SKIN: Warm, dry, normal turgor, no rashes or lesions noted, normal capillary refill. Laboratory Results - last 24 hr 03/17/17 03/18/17 03/18/17 08:03 05:00 05:00 WBC 9.3 RBC 2.42 L Hgb 7.4 L Hct 22.6 L MCV 93.4 MCH 30.5 MCHC 32.6 RDW 14.3 Plt Count 204 MPV 9.2 Sodium 142 Potassium 3.9 Chloride 107 Carbon Dioxide 28 Anion Gap 7 L BUN 12 Creatinine 0.5 L Creat Clearance w eGFR Random Glucose 107 H Calcium 7.1 L Phosphorus Magnesium Total Bilirubin AST ALT Alkaline Phosphatase Total Protein Albumin Blood Type A NEGATIVE Crossmatch See Detail Crossmatch IS Only See Detail 03/18/17 03/18/17 05:00 05:00 WBC RBC Hgb Hct MCV MCH MCHC RDW Plt Count MPV Sodium 142 Potassium 3.9 Chloride 108 H Carbon Dioxide 28 Anion Gap 6 L BUN 13 Creatinine 0.5 L Creat Clearance w eGFR > 60 Random Glucose 107 H Calcium 7.1 L Phosphorus 2.8 Magnesium 1.6 L Total Bilirubin 0.4 AST 25 ALT 24 Alkaline Phosphatase 72 Total Protein 4.9 L Albumin 2.6 L Blood Type Crossmatch Crossmatch IS Only Current Medications Generic Name Dose Route Start Last Admin Trade Name Freq PRN Reason Stop Dose Admin Albuterol Sulfate 1 amp 03/17/17 20:00 03/18/17 17:14 Ventolin 0.083% Nebulizer Soln - NEB 1 amp RQID KAMI Administration Albuterol Sulfate 2 puff 03/17/17 20:45 Ventolin Hfa Inhaler - IH Q6H PRN SHORT OF BREATH/WHEEZING Budesonide/Formoterol Fumarate 2 puff 03/17/17 22:00 03/18/17 11:43 Symbicort 160/4.5mcg - IH 2 puff BID KAMI Administration Chlorhexidine Gluconate 1 applic 03/17/17 22:00 03/17/17 22:00 Hibiclens For Decolonization - TP 1 applic HS KAMI Administration Docusate Sodium 100 mg 03/18/17 06:00 03/18/17 16:34 Colace - PO 100 mg TID KAMI Administration Hydromorphone HCl 10 mg 03/17/17 15:15 03/18/17 15:15 Dilaudid Technical Operations Manager - ACQUISITIONS EDITOR 03/24/17 15:05 10 mg ACQUISITIONS EDITOR KAMI Administration Protocol Parenteral Electrolytes 1,000 mls @ 125 mls/hr 03/17/17 17:19 03/17/17 19:43 Plasma-Lyte 148 - IV 125 mls/hr ASDIR KAMI Administration Ketorolac Tromethamine 30 mg 03/17/17 17:19 03/18/17 16:33 Toradol Injection - IVPUSH 03/22/17 14:45 30 mg Q6H PRN Administration PAIN LEVEL 6-10 Levetiracetam 250 mg 03/18/17 10:00 03/18/17 11:41 Keppra - PO 250 mg DAILY KAMI Administration Montelukast Sodium 10 mg 03/17/17 22:00 03/17/17 22:01 Singulair - PO 10 mg HS KAMI Administration Mupirocin 1 applic 03/17/17 22:00 03/18/17 11:41 Bactroban Ointment (For Decolonization) - NS 03/22/17 21:59 1 applic BID KAMI Administration Ondansetron HCl 4 mg 03/17/17 15:05 03/18/17 10:10 Zofran Injection IVPUSH 4 mg Q6H PRN Administration NAUSEA AND/OR VOMITING Primidone 250 mg 03/18/17 10:00 03/18/17 11:41 Mysoline - PO 250 mg DAILY KAMI Administration Promethazine HCl 12.5 mg 03/17/17 15:05 Phenergan Injection - IVPUSH Q6H PRN NAUSEA-FOR RESCUE AFTER 15 MIN Ropinirole HCl 3 mg 03/17/17 22:00 03/17/17 22:01 Requip - PO 3 mg HS KAMI Administration Senna 2 tab 03/18/17 22:00 Senna - PO HS KAMI Tiotropium [place] 1 puff 03/18/17 10:00 03/18/17 11:42 Spiriva - IH 1 puff DAILY KAMI Administration ASSESSMENT/PLAN 56 year-old female with a PMH significant for HLD, asthma, seizure disorder and L4-L5 anterolisthesis/instability, and L3-S1 spinal stenosis. Patient was admitted to the hospital on 03/17/[address] Juvencio Williamson. Patient is s/p L3- L4-L5 laminectomies, L3-S1 foraminal decompressions, L3/4, L4/5, L5/S1 posterior lumbar interbody fusion, L3-S1 PISF, POD #1. Spinal surgery as above, POD #1 --drain with 245cc's set to gravity --ACQUISITIONS EDITOR; transition to PO meds tomorrow --incentive spirometry --d/c boateng when ambulating --bowel regimen Anemia --Hgb 7.4; repeat in am Hyperlipidemia --continue statin Asthma --continue roflumilast, Tudorza, albuterol nebs, singulair, Advair Seizure disorder --continue Keppra, primidone, ropinirole Hypomagnesemia --replete FEN Fluids: PO intake adequate Electrolytes: replete as indicated Nutrition: full liquids DVT prophylaxis: mechanical only: SCDs, oob, ambulation Physical therapy evaluation Daily PT: WBAT B/L LE Dispo: continues to require inpatient care. Full code.
[2017-03-18] MEDS ORDERED: ACETAMINOPHEN 325 MG TABLET (FP) PO ONE (20:15)
[2017-03-18 21:02] LABS: URINE APPEARANCE SLCLOUDY; URINE BILIRUBIN NEGATIVE (NEGATIVE); URINE BLOOD 2+ (NEGATIVE); URINE COLOR STRAW; URINE GLUCOSE (UA) NEGATIVE (NEGATIVE); URINE KETONE NEGATIVE (NEGATIVE); URINE NITRITE NEGATIVE (NEGATIVE); URINE PROTEIN NEGATIVE (NEGATIVE); URINE UROBILINOGEN NEGATIVE mg/dL (0.2-1.0)
[2017-03-18] MEDS ORDERED: MAGNESIUM OXIDE 400 MG TABLET (FP) PO ONE (21:07)
[2017-03-18 21:13] LABS: URINE LEUK ESTERASE 2+ (NEGATIVE)
[2017-03-18 21:44] LABS: EPI CELLS RARE /HPF (FEW); URINE MUCUS RARE
[2017-03-18] MEDS: MONTELUKAST NA 10 MG TABLET PO SCH (21:57)
[2017-03-18] MEDS: CHLORHEXIDINE GLUCONATE 4% CLEANSER FOR DECOLONIZATION TP SCH (21:58)
[2017-03-18] MEDS: ELECTROLYTE-148 SOLN 1,000 ML IV SCH (21:59)
[2017-03-18] MEDS ORDERED: SENNOSIDES 8.6MG TABLET (FP) PO SCH (22:00)
[2017-03-18] MEDS: rOPINIRole HCL 3 MG TABLET PO SCH (22:03)
[2017-03-19] MEDS: DOCUSATE SODIUM 100 MG CAPSULE (FP) PO SCH ×3 (05:57→23:01)
[2017-03-19 06:33] LABS: BASO % 0.2 % (0-2.0); EOS % 0.3 % (0-4.5); HEMATOCRIT 21.5 % (32.4-45.2); HEMOGLOBIN 7.1 GM/dL (10.7-15.3); LYMPH % 7.7 % (8-40); MCH 30.4 pg (25.7-33.7); MEAN CELL VOLUME 92.2 fl (80-96); MEAN PLT VOLUME 9.4 fl (7.5-11.1); MONO % 6.3 % (3.8-10.2); NEUT % 85.5 % (42.8-82.8); PLATELET COUNT 213 K/MM3 (134-434); RBC 2.33 M/mm3 (3.60-5.2); RDW 14.3 % (11.6-15.6); WHITE BLOOD COUNT 11.4 K/mm3 (4.0-10.0)
[2017-03-19 07:04] LABS: ALBUMIN 2.4 g/dl (3.4-5.0); ALK PHOS 75 U/L (45-117); ANION GAP 7 (8-16); BILIRUBIN,TOTAL 0.3 mg/dL (0.2-1.0); BLOOD UREA NITROGEN 6 mg/dL (7-18); CALCIUM 7.4 mg/dL (8.5-10.1); CHLORIDE 101 mmol/L (98-107); CO2 29 mmol/L (21-32); CREATININE 0.4 mg/dL (0.55-1.02); GLUCOSE,RANDOM 101 mg/dL (74-106); MAGNESIUM 2.1 mg/dL (1.8-2.4); PHOSPHOROUS 1.9 mg/dL (2.5-4.9); SGOT/AST 25 U/L (15-37); SGPT/ALT 20 U/L (12-78); SODIUM 137 mmol/L (136-145); TOT PROT 5.3 g/dl (6.4-8.2)
[2017-03-19] MEDS: ALBUTEROL SO4 0.083% IH SOL 2.5 MG/3 ML VIAL.NEB. NEB SCH ×4 (08:00→21:10)
--- NOTE | 2017-03-19 09:03 | PN ---
Physical Exam: SUBJECTIVE: Patient seen and examined. Spiked a temp, Tmax-100.6 at-10pm yesterday. CXR shows fibrosis/platelet-like atelectasis on R lobe. Had NC put on yesterday during the fever spike. Passed flatus at 10.00pm yesterday. Having breakfast today. Still c/o of pain, managed with meds. OBJECTIVE: Vital Signs Period Temp Pulse Resp BP Sys/Chowdary Pulse Ox Last 24 Hr 98.0 F-100.6 F 77-110 13-26 80-136/55-101 Vital Signs Temp 98.8 F 03/19/17 05:49 Pulse 81 03/19/17 08:00 Resp 22 03/19/17 08:00 BP 100/89 03/19/17 08:00 Pulse Ox 96 03/17/17 20:23 Intake & Output 03/18/17 03/18/17 03/19/17 11:59 23:59 11:59 Intake Total 1700 1600 1534 Output Total 880 1690 2120 Balance 820 -90 -586 Weight 72.802 kg 72.263 kg Intake: IV 1500 1500 1434 Plasma-Lyte 148 - 1,000 1500 1500 1434 ml @ 125 mls/hr IV ASDIR KAMI Rx#:[id number] IVPB 100 Oral 200 100 Output: Drainage 80 165 120 Left Flank 80 165 120 Urine 800 1525 2000 [place] 800 1525 1999 Other: Voiding Method Indwelling Catheter Bedpan Bowel Movement No Weight Measurement [facility] GENERAL: The patient is awake, alert, out of bed in chair (with assistance) on NC sating well. Baseline essential tremors noted. HEAD: Normal with no signs of trauma. EYES: Bilaterally reactive pupils. ENT: oropharynx clear without exudates, moist mucous membranes. NECK: Trachea midline, full range of motion, supple. LUNGS: reduced breath sounds bases HEART: Regular rate and rhythm, S1, S2 ABDOMEN: Soft, nontender, nondistended, reduced bowel sounds EXTREMITIES: 2+ pulses, warm, well-perfused, no edema, compression socks on. NEUROLOGICAL: Cranial nerves II through XII grossly intact. Normal speech, gait not observed. L flank drain- draining serosanguinous fluid, L midline back dressing PSYCH: Normal mood, normal affect. Lines: [place], RUE, LUE, L flank drain Laboratory Results - last 24 hr 03/17/17 03/18/17 03/19/17 08:03 20:30 05:10 WBC 11.4 H RBC 2.33 L Hgb 7.1 L Hct 21.5 L MCV 92.2 MCH 30.4 MCHC 33.0 RDW 14.3 Plt Count 213 MPV 9.4 Neutrophils % 85.5 H Lymphocytes % 7.7 L Monocytes % 6.3 Eosinophils % 0.3 Basophils % 0.2 Sodium Potassium Chloride Carbon Dioxide Anion Gap BUN Creatinine Creat Clearance w eGFR Random Glucose Calcium Phosphorus Magnesium Total Bilirubin AST ALT Alkaline Phosphatase Total Protein Albumin Urine Color Straw Urine Appearance Slcloudy Urine pH 7.0 Ur Specific [place] 1.010 Urine Protein Negative Urine Glucose (UA) Negative Urine Ketones Negative Urine Blood 2+ H Urine Nitrite Negative Urine Bilirubin Negative Urine Urobilinogen Negative Ur Leukocyte Esterase 2+ H Urine WBC (Auto) 17 Urine RBC (Auto) 2 Ur Epithelial Cells Rare Urine Mucus Rare Blood Type A NEGATIVE Crossmatch See Detail Crossmatch IS Only See Detail 03/19/17 05:10 WBC RBC Hgb Hct MCV MCH MCHC RDW Plt Count MPV Neutrophils % Lymphocytes % Monocytes % Eosinophils % Basophils % Sodium 137 Potassium 4.0 Chloride 101 Carbon Dioxide 29 Anion Gap 7 L BUN 6 L Creatinine 0.4 L Creat Clearance w eGFR > 60 Random Glucose 101 Calcium 7.4 L Phosphorus 1.9 L D Magnesium 2.1 D Total Bilirubin 0.3 D AST 25 ALT 20 Alkaline Phosphatase 75 Total Protein 5.3 L Albumin 2.4 L Urine Color Urine Appearance Urine pH Ur Specific [place] Urine Protein Urine Glucose (UA) Urine Ketones Urine Blood Urine Nitrite Urine Bilirubin Urine Urobilinogen Ur Leukocyte Esterase Urine WBC (Auto) Urine RBC (Auto) Ur Epithelial Cells Urine Mucus Blood Type Crossmatch Crossmatch IS Only Active Medications Generic Name Dose Route Start Last Admin Trade Name Freq PRN Reason Stop Dose Admin Albuterol Sulfate 1 amp 03/17/17 20:00 03/18/17 21:00 Ventolin 0.083% Nebulizer Soln - NEB 1 amp RQID KAMI Administration Albuterol Sulfate 2 puff 03/17/17 20:45 Ventolin Hfa Inhaler - IH Q6H PRN SHORT OF BREATH/WHEEZING Budesonide/Formoterol Fumarate 2 puff 03/17/17 22:00 01/16/18 21:58 Symbicort 160/4.5mcg - IH 2 puff BID KAMI Administration Chlorhexidine Gluconate 1 applic 03/17/17 22:00 03/18/17 21:58 Hibiclens For Decolonization - TP 1 applic HS KAMI Administration Docusate Sodium 100 mg 03/18/17 06:00 03/19/17 05:57 Colace - PO 100 mg TID KAMI Administration Hydromorphone HCl 10 mg 03/17/17 15:15 03/18/17 15:15 Dilaudid Mailroom Assistant - ROUNDING AND BACKING MACHINE OPERATOR 03/24/17 15:05 10 mg ROUNDING AND BACKING MACHINE OPERATOR KAMI Administration Protocol Parenteral Electrolytes 1,000 mls @ 125 mls/hr 03/17/17 17:19 03/18/17 21:59 Plasma-Lyte 148 - IV 125 mls/hr ASDIR KAMI Administration Ketorolac Tromethamine 30 mg 03/17/17 17:19 03/18/17 16:33 Toradol Injection - IVPUSH 03/22/17 14:45 30 mg Q6H PRN Administration PAIN LEVEL 6-10 Levetiracetam 250 mg 03/18/17 10:00 03/18/17 11:41 Keppra - PO 250 mg DAILY KAMI Administration Montelukast Sodium 10 mg 03/17/17 22:00 03/18/17 21:57 Singulair - PO 10 mg HS KAMI Administration Mupirocin 1 applic 03/17/17 22:00 03/18/17 21:56 Bactroban Ointment (For Decolonization) - NS 03/22/17 21:59 1 applic BID KAMI Administration Ondansetron HCl 4 mg 03/17/17 15:05 03/18/17 10:10 Zofran Injection IVPUSH 4 mg Q6H PRN Administration NAUSEA AND/OR VOMITING Primidone 250 mg 03/18/17 10:00 03/18/17 11:41 Mysoline - PO 250 mg DAILY KAMI Administration Promethazine HCl 12.5 mg 03/17/17 15:05 Phenergan Injection - IVPUSH Q6H PRN NAUSEA-FOR RESCUE AFTER 15 MIN Ropinirole HCl 3 mg 03/17/17 22:00 03/18/17 22:03 Requip - PO 3 mg HS KAMI Administration Senna 2 tab 03/18/17 22:00 03/18/17 21:57 Senna - PO 2 tab HS KAMI Administration Tiotropium [place] 1 puff 03/18/17 10:00 03/18/17 11:42 Spiriva - IH 1 puff DAILY KAMI Administration ASSESSMENT/PLAN: 56 yo F with PMHx asthma, seizure disorders, chronic back pain now POD2 s/p L3.L4 laminectomy, L3-S1 decompressions Neuro/KATLIN: chronic back pain s/p laminectomy Seizure disorder Essential tremors AAO x3 Ropinorole Primidone 250mg PO daily Keppra 250mg PO daily Pain mx- Dilaudid, ketorolac, Iv tylenol Out of bed with assistance Physical therapy Incentive spirometry Requesting a rehab facility on discharge CBC Resp: Likely R atelectasis No more fever spikes Asthma Wean off NC Singulair Spiriva Symbicort Albuterol inhaler Albuterol nebulizer Incentive spirometry Received intra-op clida GI/Renal/ Lytes/Lines Resume feeds D/c plasmalyte Boateng-D/c BMP Replete-phosphorus Monitor Lines: LUE, RUE peripheral lines, L flank hong drain, boateng Prophylaxis: SCDs DVT prophylaxis- per surgeon Dispo: Transfer to med surg Visit type - Emergency Visit Emergency Visit: Yes ED Registration Date: 03/17/17 Care time: The patient presented to the Emergency Department on the above date and was hospitalized for further evaluation of their emergent condition. - New Patient This patient is new to me today: No - Critical Care Critical Care patient: Yes Total Critical Care Time (in minutes): 38 Critical Care Statement: The care of this patient involved high complexity decision making to prevent further life threatening deterioration of the patient 's condition and/or to evaluate & treat vital organ system(s) failure or risk of failure. - Discharge Referral Referred to [facility] Med [facility] No
[2017-03-19] MEDS ORDERED: PT OWN MED DRAWER 7, Y5N ONE ×2 (09:40→22:50)
[2017-03-19] MEDS: MUPIROCIN 2% TOPICAL OINTMENT FOR DECOLONIZATION NS SCH (09:44)
[2017-03-19] MEDS: PRIMIDONE 250 MG TABLET PO SCH (09:45)
[2017-03-19] MEDS: levETIRAcetam 250 MG TABLET (FP) PO SCH (09:45)
[2017-03-19] MEDS: BUDESONIDE/FORMETEROL FUMARATE 160/4.5 mcg INHALER IH SCH ×2 (09:50→23:02)
[2017-03-19] MEDS: TIOTROPIUM BROMIDE 18 MCG/INH (DEVICE W/ 5 CAPSULES) IH SCH (09:50)
--- NOTE | 2017-03-19 12:11 | PN ---
Teaching Attending Note Name of Resident: Elizabeth Vieyra ATTENDING PHYSICIAN STATEMENT I saw and evaluated the patient. I reviewed the resident's note and discussed the case with the resident. I agree with the resident's findings and plan as documented. SUBJECTIVE: Pt seen and examined in the ICU. Pain relatively controlled. No shortness of breath or chest pain. Low grade temp overnight, AM CXR showing mild atelectasis. OBJECTIVE: Last Vital Signs Temp Pulse Resp BP Pulse Ox 98.1 F 103 H 16 90/70 96 03/19/17 10:00 03/19/17 10:00 03/19/17 10:00 03/19/17 10:00 03/17/17 20:23 Intake & Output 03/16/17 03/17/17 03/18/17 03/19/17 23:59 23:59 23:59 23:59 Intake Total 5350 3300 1534 Output Total 1970 2570 2970 Balance 3380 730 -1436 Weight 72.802 kg 72.263 kg Gen: NAD at rest Herat: RRR Lung: scattered basilar rhonchi Abd: soft, nontender Ext: no edema CBC, BMP 03/19/17 05:10 03/19/17 05:10 Active Medications Albuterol Sulfate (Ventolin 0.083% Nebulizer Soln -) 1 amp NEB RQID [facility] Last Admin: 03/19/17 11:44 Dose: 1 amp Albuterol Sulfate (Ventolin Hfa Inhaler -) 2 puff IH Q6H PRN PRN Reason: SHORT OF BREATH/WHEEZING Budesonide/Formoterol Fumarate (Symbicort 160/4.5mcg -) 2 puff IH BID [facility] Last Admin: 03/19/17 09:50 Dose: 2 puff Chlorhexidine Gluconate (Hibiclens For Decolonization -) 1 applic TP HS [facility] Last Admin: 03/18/17 21:58 Dose: 1 applic Docusate Sodium (Colace -) 100 mg PO TID [facility] Last Admin: 03/19/17 05:57 Dose: 100 mg Hydromorphone HCl (Dilaudid Esl Instructor -) 10 mg PACKING MACHINE FEEDER PACKING MACHINE FEEDER KAMI PRN Reason: Protocol Stop: 03/24/17 15:05 Last Admin: 03/18/17 15:15 Dose: 10 mg Parenteral Electrolytes (Plasma-Lyte 148 -) 1,000 mls @ 125 mls/hr IV ASDIR [facility] Last Admin: 03/18/17 21:59 Dose: 125 mls/hr Ketorolac Tromethamine (Toradol Injection -) 30 mg IVPUSH Q6H PRN PRN Reason: PAIN LEVEL 6-10 Stop: 03/22/17 14:45 Last Admin: 03/18/17 16:33 Dose: 30 mg Levetiracetam (Keppra -) 250 mg PO DAILY [facility] Last Admin: 03/19/17 09:45 Dose: 250 mg Montelukast Sodium (Singulair -) 10 mg PO [facility] Last Admin: 03/18/17 21:57 Dose: 10 mg Mupirocin (Bactroban Ointment (For Decolonization) -) 1 applic NS BID [facility] Stop: 03/22/17 21:59 Last Admin: 03/19/17 09:44 Dose: 1 applic Ondansetron HCl (Zofran Injection) 4 mg IVPUSH Q6H PRN PRN Reason: NAUSEA AND/OR VOMITING Last Admin: 03/18/17 10:10 Dose: 4 mg Potassium Phos/Sodium Phos (Phos-Nak Packet -) 2 packet PO TID [facility] Primidone (Mysoline -) 250 mg PO DAILY [facility] Last Admin: 03/19/17 09:45 Dose: 250 mg Promethazine HCl (Phenergan Injection -) 12.5 mg IVPUSH Q6H PRN PRN Reason: NAUSEA-FOR RESCUE AFTER 15 MIN Ropinirole HCl (Requip -) 3 mg PO [facility] Last Admin: 03/18/17 22:03 Dose: 3 mg Senna (Senna -) 2 tab PO [facility] Last Admin: 03/18/17 21:57 Dose: 2 tab Tiotropium [place] (Spiriva -) 1 puff IH DAILY [facility] Last Admin: 03/19/17 09:50 Dose: 1 puff ASSESSMENT AND PLAN: L4-L5 Anterolisthesis/Instability L3-S1 Spinal Stenosis s/p L3-L5 Laminectomies/L3-S1 Foraminal Decompressions/Fusions Asthma Seizure Disorder Hyperlipidemia Anemia - pain control - incentive spirometry - monitor off antibiotics - monitor drain output - inhaled bronchodilators - monitor H/H - rehab/PT - PO as tolerated - DVT prophylaxis - can transfer to floor
--- NOTE | 2017-03-19 13:10 | PN ---
Progress Note (short form) - Note Progress Note: Patient see. POD#2 after lumbar fusion. Appropriate ASSOCIATE MANAGER use. No sig N/V/ pruritis/sedation. Taking POs w/out problem. Scheduled to be transferred to floor today. Plan: Will d/c ASSOCIATE MANAGER-->po analgesics. Pleasae recall prn.
[2017-03-19] MEDS ORDERED: NAPH,MB-DB/K PH,MBDB POWDER PACKET PO SCH (14:00)
[2017-03-19] MEDS ORDERED: PROMETHAZINE HCL 25 MG/1 ML VIAL IVPUSH PRN (15:28)
[2017-03-19] MEDS ORDERED: ONDANSETRON 4 MG/2 ML VIAL IVPUSH PRN (15:28)
[2017-03-19] MEDS ORDERED: KETOROLAC TROMETHAMINE 30 MG/1 ML VIAL IVPUSH PRN (15:28)
[2017-03-19] MEDS ORDERED: ALBUTEROL SO4 18 GM HFA INHALER IH PRN (15:28)
--- NOTE | 2017-03-19 15:35 | PATH ---
Surgical Pathology Report Patient Name: LUX COCHRAN [facility]. Rec. #: [id number] /Age/Gender: 1960 (Age: 56) / F Account: [id number] Location: [address] [place] [address]/[facility] Taken: 03/17/2017 Received: 03/18/2017 Reported: 03/19/2017 Physicians: Juvencio Williamson M.D. Specimen(s) Received DISC TISSUE OF L3-L4-L5,S1 Clinical History Spondylolisthesis, lumbar region Final Diagnosis DISC L3-L4-L5-S1, EXCISION: CARTILAGE WITH DEGENERATIVE CHANGES. BONE WITH NO PATHOLOGIC FINDINGS. Electronically Signed Kim Almonte M.D. Gross Description Received in formalin labeled "L3-L4-L5-S1 disc tissue," is a 4.3 x 3.7 x 0.5 cm aggregate of garza fragments of fibrocartilaginous tissue and possible bone. A bilingual call center representative portion is submitted in one cassette, following decalcification. /03/18/2017 saudi03/18/2017
[2017-03-19] MEDS ORDERED: ACETAMINOPHEN 325 MG TABLET (FP) ONE (17:19)
[2017-03-19] MEDS ORDERED: morphine CARPU-JECT 10 MG/1 ML DISP.SYRIN IVPUSH PRN (18:20)
--- NOTE | 2017-03-19 18:28 | PN ---
Physical Exam: SUBJECTIVE: Patient seen and examined at bedside. Feels feverish. Pain at incision site. OBJECTIVE: Vital Signs Period Temp Pulse Resp BP Sys/Chowdary Pulse Ox Last 24 Hr 98.1 F-100.6 F 77-110 15-22 90-136/64-101 GENERAL: The patient is awake, alert, and fully oriented, in no acute distress. LUNGS: Breath sounds equal, clear to auscultation bilaterally, no wheezes, no crackles, no accessory muscle use. HEART: Regular rate and rhythm, S1, S2 without murmur, rub or gallop. ABDOMEN: Soft, nontender, nondistended, normoactive bowel sounds, no guarding, no rebound BACK: Long vertical surgical dressing c/d/i; DEBBIE drain with ~50cc serosanguinous fluid EXTREMITIES: 2+ pulses, warm, well-perfused, no edema. NEUROLOGICAL: Cranial nerves II through XII grossly intact. Normal speech, gait not observed. Laboratory Results - last 24 hr 03/18/17 03/19/17 03/19/17 20:30 05:10 05:10 WBC 11.4 H RBC 2.33 L Hgb 7.1 L Hct 21.5 L MCV 92.2 MCH 30.4 MCHC 33.0 RDW 14.3 Plt Count 213 MPV 9.4 Neutrophils % 85.5 H Lymphocytes % 7.7 L Monocytes % 6.3 Eosinophils % 0.3 Basophils % 0.2 Sodium 137 Potassium 4.0 Chloride 101 Carbon Dioxide 29 Anion Gap 7 L BUN 6 L Creatinine 0.4 L Creat Clearance w eGFR > 60 Random Glucose 101 Calcium 7.4 L Phosphorus 1.9 L D Magnesium 2.1 D Total Bilirubin 0.3 D AST 25 ALT 20 Alkaline Phosphatase 75 Total Protein 5.3 L Albumin 2.4 L Urine Color Straw Urine Appearance Slcloudy Urine pH 7.0 Ur Specific [place] 1.010 Urine Protein Negative Urine Glucose (UA) Negative Urine Ketones Negative Urine Blood 2+ H Urine Nitrite Negative Urine Bilirubin Negative Urine Urobilinogen Negative Ur Leukocyte Esterase 2+ H Urine WBC (Auto) 17 Urine RBC (Auto) 2 Ur Epithelial Cells Rare Urine Mucus Rare Active Medications Generic Name Dose Route Start Last Admin Trade Name Freq PRN Reason Stop Dose Admin Acetaminophen 650 mg 03/19/17 17:15 Tylenol - PO Q6H PRN MODERATE PAIN Albuterol Sulfate 1 amp 03/19/17 16:00 03/19/17 16:15 Ventolin 0.083% Nebulizer Soln - NEB 1 amp RQID KAMI Administration Albuterol Sulfate 2 puff 03/19/17 15:28 Ventolin Hfa Inhaler - IH Q6H PRN SHORT OF BREATH/WHEEZING Budesonide/Formoterol Fumarate 2 puff 03/19/17 22:00 Symbicort 160/4.5mcg - IH BID [facility] Docusate Sodium 100 mg 03/19/17 22:00 Colace - PO TID [facility] Ketorolac Tromethamine 30 mg 03/19/17 15:28 Toradol Injection - IVPUSH 03/22/17 14:45 Q6H PRN PAIN LEVEL 6-10 Levetiracetam 250 mg 03/20/17 10:00 Keppra - PO DAILY [facility] Montelukast Sodium 10 mg 03/19/17 22:00 Singulair - PO HS [facility] Ondansetron HCl 4 mg 03/19/17 15:28 Zofran Injection IVPUSH Q6H PRN NAUSEA AND/OR VOMITING Oxycodone HCl 5 mg 03/19/17 18:23 Roxicodone - PO Q4H PRN PAIN LEVEL 7 - 10 Potassium Phos/Sodium Phos 2 packet 03/19/17 22:00 Phos-Nak Packet - PO TID [facility] Primidone 250 mg 03/20/17 10:00 Mysoline - PO DAILY [facility] Promethazine HCl 12.5 mg 03/19/17 15:28 Phenergan Injection - IVPUSH Q6H PRN NAUSEA-FOR RESCUE AFTER 15 MIN Ropinirole HCl 3 mg 03/19/17 22:00 Requip - PO HS [facility] Senna 2 tab 03/19/17 22:00 Senna - PO HS [facility] Tiotropium [place] 1 puff 03/20/17 10:00 Spiriva - IH DAILY [facility] ASSESSMENT/PLAN 56 year-old female with a PMH significant for HLD, asthma, seizure disorder and L4-L5 anterolisthesis/instability, and L3-S1 spinal stenosis. Patient was admitted to the hospital on 03/17/[address] Juvencio Williamson. Patient is s/p L3- L4-L5 laminectomies, L3-S1 foraminal decompressions, L3/4, L4/5, L5/S1 posterior lumbar interbody fusion, L3-S1 PISF, POD #1. Spinal surgery as above, POD #2 --drain with ~50 cc's serosanguinous fluid --surgical dressing c/d/i --BAGGAGEMASTER dc'd; PO pain meds --incentive spirometry, chest PT, oob, ambulation, PT --d/c boateng when ambulating Fever --to 101.7, mild leukocytosis --post-surgical inflammatory response v. infection; had mild pyuria in UA, UC pending; discussed with Dr. Williamson --blood and urine cultures ordered; hold antibiotics for now; if spikes again , consider starting vanc and clinda (allergic to cephalosporin and fluoroquinolone) --IV fluids Anemia --Hgb 7.1 --when afebrile transfuse 3U PRBC per Dr. Williamson --repeat cbc pending Hyperlipidemia --continue statin Asthma --continue roflumilast, Tudorza, albuterol nebs, singulair, Advair Seizure disorder --continue Keppra, primidone, ropinirole Hypomagnesemia, resolved FEN Fluids: NS @ 75mL/hr Electrolytes: replete as indicated Nutrition: full liquids DVT prophylaxis: mechanical only: SCDs, oob, ambulation Physical therapy evaluation Daily PT Dispo: continues to require inpatient care. Full code. Visit type - Emergency Visit Emergency Visit: No - New Patient This patient is new to me today: No - Critical Care Critical Care patient: No
[2017-03-19] MEDS ORDERED: CEFTRIAXONE 1 GM in DEXTROSE 5%-WATER - 50 ML IVPB SCH (18:45)
--- NOTE | 2017-03-19 19:13 | PN ---
Progress Note (short form) - Note Progress Note: 56F s/p L3, L4, L5 laminectomies, L3-S1 foraminal decompressions, L3/4, L4/5, L5 /S1 PLIF, & L3-S1 PISF POD #2. Pain well controlled. (-) Acute events overnight. (+) Intermittent headaches. (-) Overnight history of chest pain, shortness of breath, nausea, vomiting, chills, & sweats. (+) Voiding; (+) Flatus; (-) BM. All labs and vitals reviewed. Hemoglobin and Hct LOW: 7.1/21.5. Febrile to 101.7F. PE: AAO x 3, NAD. Spine: Dressing C/D/I. Drain inact & in place. B/L LE NV status at baseline. 56F s/p L3, L4, L5 laminectomies, L3-S1 foraminal decompressions, L3/4, L4/5, L5 /S1 PLIF, & L3-S1 PISF POD #2. -Pain control. -Incentive spirometry/aggressive pulmonary toilet. -Mechanical DVT PPx. only. -PT/OT/Rehab, OOB. -WBAT B/L LE. -1 x superficial Bacilio drain SET TO GRAVITY -- DO NOT SET DRAIN TO SUCTION . -When pt. afebrile, please transfuse 3U PRBC. -Care per primary medical team. -Discharge planning.
[2017-03-19] MEDS: SODIUM CHLORIDE 1,000 ML IV SCH (20:08)
[2017-03-19] MEDS: oxyCODONE HCL 5 MG TABLET PO PRN (20:12)
[2017-03-19 20:31] LABS: URINE APPEARANCE CLEAR; URINE BILIRUBIN NEGATIVE (NEGATIVE); URINE BLOOD 1+ (NEGATIVE); URINE COLOR STRAW; URINE GLUCOSE (UA) NEGATIVE (NEGATIVE); URINE KETONE TRACE (NEGATIVE); URINE NITRITE NEGATIVE (NEGATIVE); URINE PROTEIN NEGATIVE (NEGATIVE); URINE UROBILINOGEN NEGATIVE mg/dL (0.2-1.0)
[2017-03-19 20:58] LABS: URINE LEUK ESTERASE 1+ (NEGATIVE)
[2017-03-19 21:22] LABS: BASO % 0.2 % (0-2.0); EOS % 0.6 % (0-4.5); HEMATOCRIT 20.9 % (32.4-45.2); LYMPH % 12.1 % (8-40); MCHC 32.8 g/dl (32.0-36.0); MEAN CELL VOLUME 91.6 fl (80-96); MEAN PLT VOLUME 8.8 fl (7.5-11.1); MONO % 7.6 % (3.8-10.2); NEUT % 79.5 % (42.8-82.8); PLATELET COUNT 213 K/MM3 (134-434); RBC 2.28 M/mm3 (3.60-5.2); RDW 14.1 % (11.6-15.6); WHITE BLOOD COUNT 11.5 K/mm3 (4.0-10.0)
[2017-03-19 21:26] LABS: HEMOGLOBIN 6.8 GM/dL (10.7-15.3)
[2017-03-19] MEDS ORDERED: ACETAMINOPHEN 325 MG TABLET (FP) PO ONE (21:59)
[2017-03-19] MEDS: ACETAMINOPHEN 325 MG TABLET (FP) PO PRN (22:06)
[2017-03-19] MEDS: NAPH,MB-DB/K PH,MBDB POWDER PACKET PO SCH (23:01)
[2017-03-19] MEDS: SENNOSIDES 8.6MG TABLET (FP) PO SCH (23:02)
[2017-03-19] MEDS: MONTELUKAST NA 10 MG TABLET PO SCH (23:02)
[2017-03-19] MEDS: rOPINIRole HCL 3 MG TABLET PO SCH (23:03)
[2017-03-20] MEDS: DOCUSATE SODIUM 100 MG CAPSULE (FP) PO SCH ×3 (05:57→22:09)
[2017-03-20] MEDS: oxyCODONE HCL 5 MG TABLET PO PRN ×4 (05:57→22:27)
[2017-03-20] MEDS: NAPH,MB-DB/K PH,MBDB POWDER PACKET PO SCH ×3 (05:58→22:16)
[2017-03-20] MEDS: SODIUM CHLORIDE 1,000 ML IV SCH (05:58)
[2017-03-20] MEDS: ALBUTEROL SO4 0.083% IH SOL 2.5 MG/3 ML VIAL.NEB. NEB SCH ×5 (08:00→20:40)
[2017-03-20 08:02] LABS: BASO % 0.4 % (0-2.0); EOS % 0.6 % (0-4.5); HEMATOCRIT 21.4 % (32.4-45.2); LYMPH % 8.1 % (8-40); MCH 30.1 pg (25.7-33.7); MCHC 32.4 g/dl (32.0-36.0); MEAN CELL VOLUME 92.8 fl (80-96); MONO % 6.9 % (3.8-10.2); PLATELET COUNT 234 K/MM3 (134-434); RBC 2.31 M/mm3 (3.60-5.2); RDW 14.5 % (11.6-15.6)
[2017-03-20 08:27] LABS: ALBUMIN 2.4 g/dl (3.4-5.0); ANION GAP 10 (8-16); BLOOD UREA NITROGEN 5 mg/dL (7-18); CALCIUM 7.8 mg/dL (8.5-10.1); CHLORIDE 102 mmol/L (98-107); CO2 27 mmol/L (21-32); CREATININE 0.4 mg/dL (0.55-1.02); GLUCOSE,RANDOM 97 mg/dL (74-106); MAGNESIUM 2.2 mg/dL (1.8-2.4); PHOSPHOROUS 2.5 mg/dL (2.5-4.9); POTASSIUM 4.2 mmol/L (3.5-5.1); SGOT/AST 22 U/L (15-37); SGPT/ALT 21 U/L (12-78); SODIUM 139 mmol/L (136-145)
[2017-03-20 08:29] LABS: ALK PHOS 71 U/L (45-117); BILIRUBIN,TOTAL 0.3 mg/dL (0.2-1.0); TOT PROT 5.6 g/dl (6.4-8.2)
[2017-03-20] MEDS ORDERED: PT OWN MED DRAWER 7, Y5N ONE ×3 (08:31→22:23)
[2017-03-20] MEDS: PRIMIDONE 250 MG TABLET PO SCH (10:09)
[2017-03-20] MEDS: levETIRAcetam 250 MG TABLET (FP) PO SCH (10:09)
[2017-03-20] MEDS: BUDESONIDE/FORMETEROL FUMARATE 160/4.5 mcg INHALER IH SCH ×2 (10:09→22:15)
--- NOTE | 2017-03-20 12:39 | PN ---
Progress Note (short form) - Note Progress Note: Awake and alert. Pain relatively controlled. No shortness of breath or chest pain. Some dry cough. Continues to have low grade temp. OBJECTIVE: Intake & Output 03/17/17 03/18/17 03/19/17 03/20/17 23:59 23:59 23:59 23:59 Intake Total 5350 3300 2484 900 Output Total 1970 2570 6070 30 Balance 3380 730 -3586 870 Weight 160 lb 8 oz 159 lb 5 oz Last Vital Signs Temp Pulse Resp BP Pulse Ox 99.7 F H 100 H 18 120/78 97 03/20/17 09:00 03/20/17 09:00 03/20/17 09:00 03/20/17 09:00 03/20/17 08:00 Active Medications Acetaminophen (Tylenol -) 650 mg PO Q6H PRN PRN Reason: MODERATE PAIN Last Admin: 03/19/17 22:06 Dose: 650 mg Albuterol Sulfate (Ventolin 0.083% Nebulizer Soln -) 1 amp NEB RQID [facility] Last Admin: 03/20/17 11:51 Dose: Not Given Albuterol Sulfate (Ventolin Hfa Inhaler -) 2 puff IH Q6H PRN PRN Reason: SHORT OF BREATH/WHEEZING Budesonide/Formoterol Fumarate (Symbicort 160/4.5mcg -) 2 puff IH BID [facility] Last Admin: 03/20/17 10:09 Dose: 2 puff Docusate Sodium (Colace -) 100 mg PO TID [facility] Last Admin: 03/20/17 05:57 Dose: 100 mg Sodium Chloride (Normal Saline -) 1,000 mls @ 75 mls/hr IV ASDIR [facility] Last Admin: 03/20/17 05:58 Dose: 75 mls/hr Levetiracetam (Keppra -) 250 mg PO DAILY [facility] Last Admin: 03/20/17 10:09 Dose: 250 mg Montelukast Sodium (Singulair -) 10 mg PO HS [facility] Last Admin: 03/19/17 23:02 Dose: 10 mg Ondansetron HCl (Zofran Injection) 4 mg IVPUSH Q6H PRN PRN Reason: NAUSEA AND/OR VOMITING Oxycodone HCl (Roxicodone -) 5 mg PO Q4H PRN PRN Reason: PAIN LEVEL 7 - 10 Last Admin: 03/20/17 05:57 Dose: 5 mg Potassium Phos/Sodium Phos (Phos-Nak Packet -) 2 packet PO TID [facility] Last Admin: 03/20/17 05:58 Dose: 2 packet Primidone (Mysoline -) 250 mg PO DAILY [facility] Last Admin: 03/20/17 10:09 Dose: 250 mg Promethazine HCl (Phenergan Injection -) 12.5 mg IVPUSH Q6H PRN PRN Reason: NAUSEA-FOR RESCUE AFTER 15 MIN Ropinirole HCl (Requip -) 3 mg PO HS [facility] Last Admin: 03/19/17 23:03 Dose: 3 mg Senna (Senna -) 2 tab PO [facility] Last Admin: 03/19/17 23:02 Dose: 2 tab Tiotropium [place] (Spiriva -) 1 puff IH DAILY [facility] Gen: NAD at rest Herat: RRR Lung: scattered basilar rhonchi Abd: soft, nontender Ext: no edema Laboratory Results - last 24 hr 03/19/17 03/19/17 03/20/17 19:00 20:45 07:30 WBC 11.5 H 12.0 H RBC 2.28 L 2.31 L Hgb 6.8 L* 7.0 L Hct 20.9 L 21.4 L MCV 91.6 92.8 MCH 30.0 30.1 MCHC 32.8 32.4 RDW 14.1 14.5 Plt Count 213 234 MPV 8.8 9.0 Neutrophils % 79.5 84.0 H Lymphocytes % 12.1 D 8.1 D Monocytes % 7.6 6.9 Eosinophils % 0.6 D 0.6 Basophils % 0.2 0.4 Sodium Potassium Chloride Carbon Dioxide Anion Gap BUN Creatinine Creat Clearance w eGFR Random Glucose Calcium Phosphorus Magnesium Total Bilirubin AST ALT Alkaline Phosphatase Total Protein Albumin Urine Color Straw Urine Appearance Clear Urine pH 7.0 Ur Specific [place] 1.008 Urine Protein Negative Urine Glucose (UA) Negative Urine Ketones Trace H Urine Blood 1+ H Urine Nitrite Negative Urine Bilirubin Negative Urine Urobilinogen Negative Ur Leukocyte Esterase 1+ H 03/20/17 07:30 WBC RBC Hgb Hct MCV MCH MCHC RDW Plt Count MPV Neutrophils % Lymphocytes % Monocytes % Eosinophils % Basophils % Sodium 139 Potassium 4.2 Chloride 102 Carbon Dioxide 27 Anion Gap 10 BUN 5 L Creatinine 0.4 L Creat Clearance w eGFR > 60 Random Glucose 97 Calcium 7.8 L Phosphorus 2.5 Magnesium 2.2 Total Bilirubin 0.3 AST 22 ALT 21 Alkaline Phosphatase 71 Total Protein 5.6 L Albumin 2.4 L Urine Color Urine Appearance Urine pH Ur Specific [place] Urine Protein Urine Glucose (UA) Urine Ketones Urine Blood Urine Nitrite Urine Bilirubin Urine Urobilinogen Ur Leukocyte Esterase ASSESSMENT AND PLAN: L4-L5 Anterolisthesis/Instability L3-S1 Spinal Stenosis s/p L3-L5 Laminectomies/L3-S1 Foraminal Decompressions/Fusions Asthma Seizure Disorder Hyperlipidemia Anemia Atelectasis - Encourage Incentive Spirometry - Monitor off ABX - pain control - inhaled bronchodilators - monitor H/H - rehab/PT - PO as tolerated - DVT prophylaxis Dr Wright
[2017-03-20] MEDS: ACETAMINOPHEN 325 MG TABLET (FP) PO PRN ×2 (13:22→18:40)
[2017-03-20] MEDS: TIOTROPIUM BROMIDE 18 MCG/INH (DEVICE W/ 5 CAPSULES) IH SCH (13:22)
--- NOTE | 2017-03-20 15:26 | PN ---
Progress Note (short form) - Note Progress Note: Subjective: The patient was seen and examined at the bedside, she had no complaints at this time. She reports painful urination Current Medications Generic Name Dose Route Start Last Admin Trade Name Freq PRN Reason Stop Dose Admin Acetaminophen 650 mg 03/19/17 17:15 03/20/17 13:22 Tylenol - PO 650 mg Q6H PRN Administration MODERATE PAIN Albuterol Sulfate 1 amp 03/19/17 16:00 03/20/17 11:51 Ventolin 0.083% Nebulizer Soln - NEB Not Given RQID KAMI Albuterol Sulfate 2 puff 03/19/17 15:28 Ventolin Hfa Inhaler - IH Q6H PRN SHORT OF BREATH/WHEEZING Budesonide/Formoterol Fumarate 2 puff 03/19/17 22:00 03/20/17 10:09 Symbicort 160/4.5mcg - IH 2 puff BID KAMI Administration Docusate Sodium 100 mg 03/19/17 22:00 03/20/17 13:24 Colace - PO 100 mg TID KAMI Administration Sodium Chloride 1,000 mls @ 75 mls/hr 03/19/17 18:30 03/20/17 05:58 Normal Saline - IV 75 mls/hr ASDIR KAMI Administration Levetiracetam 250 mg 03/20/17 10:00 03/20/17 10:09 Keppra - PO 250 mg DAILY K[facility]I Administration Montelukast Sodium 10 mg 03/19/17 22:00 03/19/17 23:02 Singulair - PO 10 mg HS KAMI Administration Ondansetron HCl 4 mg 03/19/17 15:28 Zofran Injection IVPUSH Q6H PRN NAUSEA AND/OR VOMITING Oxycodone HCl 5 mg 03/19/17 18:23 03/20/17 13:23 Roxicodone - PO 5 mg Q4H PRN Administration PAIN LEVEL 7 - 10 Potassium Phos/Sodium Phos 2 packet 03/19/17 22:00 03/20/17 13:23 Phos-Nak Packet - PO 2 packet TID KAMI Administration Primidone 250 mg 03/20/17 10:00 03/20/17 10:09 Mysoline - PO 250 mg DAILY K[facility]I Administration Promethazine HCl 12.5 mg 01/17/18 15:28 Phenergan Injection - IVPUSH Q6H PRN NAUSEA-FOR RESCUE AFTER 15 MIN Ropinirole HCl 3 mg 03/19/17 22:00 03/19/17 23:03 Requip - PO 3 mg HS KAMI Administration Senna 2 tab 03/19/17 22:00 03/19/17 23:02 Senna - PO 2 tab HS K[facility]I Administration Tiotropium [place] 1 puff 03/20/17 10:00 03/20/17 13:22 Spiriva - IH 1 puff DAILY [facility] Administration Trimethoprim/Sulfamethoxazole 1 each 03/20/17 16:00 Bactrim Ds - PO Q12H KAMI Objective: Vital Signs Period Temp Pulse Resp BP Sys/Chowdary Pulse Ox Last 24 Hr 99.1 F-999 F 94-102 18-20 120-135/57-78 96-97 Physical Exam: General: NAD, A&Ox3 Lungs: CTA bilaterally Heart: RRR, S1S2 MSK: Midline back dressing, c/d/i. Drain in place to gravity Ext: Warm, well-perfused. 2+ DP/PT bilaterally CBCD WBC 12.0 K/mm3 (4.0-10.0) H 03/20/17 07:30 RBC 2.31 M/mm3 (3.60-5.2) L 03/20/17 07:30 Hgb 7.0 GM/dL (10.7-15.3) L 03/20/17 07:30 Hct 21.4 % (32.4-45.2) L 03/20/17 07:30 MCV 92.8 fl (80-96) 03/20/17 07:30 MCHC 32.4 g/dl (32.0-36.0) 03/20/17 07:30 RDW 14.5 % (11.6-15.6) 03/20/17 07:30 Plt Count 234 K/MM3 (134-434) 03/20/17 07:30 MPV 9.0 fl (7.5-11.1) 03/20/17 07:30 CMP Sodium 139 mmol/L (136-145) 03/20/17 07:30 Potassium 4.2 mmol/L (3.5-5.1) 03/20/17 07:30 Chloride 102 mmol/L (98-107) 03/20/17 07:30 Carbon Dioxide 27 mmol/L (21-32) 03/20/17 07:30 Anion Gap 10 (8-16) 03/20/17 07:30 BUN 5 mg/dL (7-18) L 03/20/17 07:30 Creatinine 0.4 mg/dL (0.55-1.02) L 03/20/17 07:30 Creat Clearance w eGFR > 60 (>60) 03/20/17 07:30 Random Glucose 97 mg/dL (74-106) 03/20/17 07:30 Calcium 7.8 mg/dL (8.5-10.1) L 03/20/17 07:30 Total Bilirubin 0.3 mg/dL (0.2-1.0) 03/20/17 07:30 AST 22 U/L (15-37) 03/20/17 07:30 ALT 21 U/L (12-78) 03/20/17 07:30 Alkaline Phosphatase 71 U/L (45-117) 03/20/17 07:30 Total Protein 5.6 g/dl (6.4-8.2) L 03/20/17 07:30 Albumin 2.4 g/dl (3.4-5.0) L 03/20/17 07:30 Microbiology 03/18/17 20:30 Urine - Urine Alas Urine Culture - Preliminary Lactose Fermenting Neg Bacilli Pending Organism 03/18/17 20:00 Blood - Peripheral Venous Blood Culture - Preliminary NO GROWTH OBTAINED AFTER 24 HOURS, INCUBATION TO CONTINUE FOR 4 DAYS. 03/18/17 20:00 Blood - Peripheral Venous Blood Culture - Preliminary NO GROWTH OBTAINED AFTER 24 HOURS, INCUBATION TO CONTINUE FOR 4 DAYS. Assessment: This is a 56 year old female with PMHx of hyperlipidemia, asthma, seizure disorder, L4-L5 anterolisthesis/instability, and L3-S1 spinal stenosis who was admitted to the hospital on 03/17/[address] Williamson for L3-L5 laminectomies , L3-S1 foraminal decompressions, L3/4 L4/5 L5/S1 posterior lumbar interbody fusion, L3-S1 PISF Plan: 1) Spinal surgery as above - POD #3 - Drain to gravity ONLY - Pain management - Incentive spirometer - Appreciate surgery consult 2) Post-op fever - Re-cultured - UA with 1+ leuks, painful urination - Will start Bactrim, f/u final culture 3) Anemia - Transfuse 3u PRBC today - Lasix 40mg in between 2nd and 3rd unit 4) Asthma - Continue roflumislast - Continue Tudorza - Continue Singulair - Continue Advair - Continue Albuterol nebs 5) Seizure disorder - Continue Keppra - Continue primidone - Continue ropinirole 6) F/E/N: - Full liquid diet - Monitor electrolytes 7) Prophylaxis: - SCDs ONLY per surgery 8) Dispo: - Requires continued inpatient care CODE STATUS: FULL CODE Visit type - Emergency Visit Emergency Visit: Yes ED Registration Date: 03/17/17 Care time: The patient presented to the Emergency Department on the above date and was hospitalized for further evaluation of their emergent condition. - New Patient This patient is new to me today: Yes Date on this admission: 03/20/17 - Critical Care Critical Care patient: No
[2017-03-20] MEDS ORDERED: FUROSEMIDE 40 MG/4 ML INJECTABLE VIAL IVPUSH ONE (16:15)
[2017-03-20] MEDS: SULFAMETHOXAZOLE/TRIMETHOPRIM 800MG/160MG D.S. TABLET PO SCH ×2 (16:19→22:09)
[2017-03-20] MEDS: SENNOSIDES 8.6MG TABLET (FP) PO SCH (22:09)
[2017-03-20] MEDS: MONTELUKAST NA 10 MG TABLET PO SCH (22:09)
[2017-03-20] MEDS: rOPINIRole HCL 3 MG TABLET PO SCH (22:15)
[2017-03-21] MEDS: oxyCODONE HCL 5 MG TABLET PO PRN ×5 (02:33→22:44)
[2017-03-21] MEDS ORDERED: FUROSEMIDE 40 MG/4 ML INJECTABLE VIAL IVPUSH ONE (03:45)
[2017-03-21] MEDS: DOCUSATE SODIUM 100 MG CAPSULE (FP) PO SCH ×3 (05:53→21:07)
[2017-03-21] MEDS: NAPH,MB-DB/K PH,MBDB POWDER PACKET PO SCH ×3 (05:53→21:17)
[2017-03-21] MEDS: ALBUTEROL SO4 0.083% IH SOL 2.5 MG/3 ML VIAL.NEB. NEB SCH ×4 (07:45→20:50)
--- NOTE | 2017-03-21 08:40 | PN ---
Progress Note (short form) - Note Progress Note: Subjective: The patient was seen and examined at the bedside, she states she is tired because she was unable to sleep last night She is receiving her 3rd unit of PRBC Current Medications Generic Name Dose Route Start Last Admin Trade Name Freq PRN Reason Stop Dose Admin Acetaminophen 650 mg 03/19/17 17:15 03/20/17 18:40 Tylenol - PO 650 mg Q6H PRN Administration MODERATE PAIN Albuterol Sulfate 1 amp 03/19/17 16:00 03/21/17 07:45 Ventolin 0.083% Nebulizer Soln - NEB 1 amp RQID KAMI Administration Albuterol Sulfate 2 puff 03/19/17 15:28 Ventolin Hfa Inhaler - IH Q6H PRN SHORT OF BREATH/WHEEZING Budesonide/Formoterol Fumarate 2 puff 03/19/17 22:00 03/20/17 22:15 Symbicort 160/4.5mcg - IH 2 puff BID KAMI Administration Docusate Sodium 100 mg 03/19/17 22:00 03/21/17 05:53 Colace - PO 100 mg TID KAMI Administration Levetiracetam 250 mg 03/20/17 10:00 03/20/17 10:09 Keppra - PO 250 mg DAILY [facility] Administration Montelukast Sodium 10 mg 03/19/17 22:00 03/20/17 22:09 Singulair - PO 10 mg HS [facility]I Administration Ondansetron HCl 4 mg 03/19/17 15:28 Zofran Injection IVPUSH Q6H PRN NAUSEA AND/OR VOMITING Oxycodone HCl 5 mg 03/19/17 18:23 03/21/17 06:46 Roxicodone - PO 5 mg Q4H PRN Administration PAIN LEVEL 7 - 10 Potassium Phos/Sodium Phos 2 packet 03/19/17 22:00 03/21/17 05:53 Phos-Nak Packet - PO 2 packet TID [facility]I Administration Primidone 250 mg 03/20/17 10:00 03/20/17 10:09 Mysoline - PO 250 mg DAILY [facility]I Administration Promethazine HCl 12.5 mg 03/19/17 15:28 Phenergan Injection - IVPUSH Q6H PRN NAUSEA-FOR RESCUE AFTER 15 MIN Ropinirole HCl 3 mg 03/19/17 22:00 03/20/17 22:15 Requip - PO 3 mg HS K[facility]I Administration Senna 2 tab 03/19/17 22:00 03/20/17 22:09 Senna - PO 2 tab HS [facility]I Administration Tiotropium [place] 1 puff 03/20/17 10:00 03/20/17 13:22 Spiriva - IH 1 puff DAILY [facility] Administration Trimethoprim/Sulfamethoxazole 1 each 03/20/17 16:00 03/20/17 22:09 Bactrim Ds - PO 1 each BID K[facility]I Administration Objective: Vital Signs Period Temp Pulse Resp BP Sys/Chowdary Pulse Ox Last 24 Hr 98.8 F-99.7 F 92-100 18-18 93-120/58-78 96-96 Physical Exam: General: NAD, A&Ox3 Lungs: CTA bilaterally Heart: RRR, S1S2 MSK: Midline back dressing, c/d/i. Drain in place to gravity Ext: Warm, well-perfused. 2+ DP/PT bilaterally CBCD WBC 12.0 K/mm3 (4.0-10.0) H 03/20/17 07:30 RBC 2.31 M/mm3 (3.60-5.2) L 03/20/17 07:30 Hgb 7.0 GM/dL (10.7-15.3) L 03/20/17 07:30 Hct 21.4 % (32.4-45.2) L 03/20/17 07:30 MCV 92.8 fl (80-96) 03/20/17 07:30 MCHC 32.4 g/dl (32.0-36.0) 03/20/17 07:30 RDW 14.5 % (11.6-15.6) 03/20/17 07:30 Plt Count 234 K/MM3 (134-434) 03/20/17 07:30 MPV 9.0 fl (7.5-11.1) 03/20/17 07:30 CMP Sodium 139 mmol/L (136-145) 03/20/17 07:30 Potassium 4.2 mmol/L (3.5-5.1) 03/20/17 07:30 Chloride 102 mmol/L (98-107) 03/20/17 07:30 Carbon Dioxide 27 mmol/L (21-32) 03/20/17 07:30 Anion Gap 10 (8-16) 03/20/17 07:30 BUN 5 mg/dL (7-18) L 03/20/17 07:30 Creatinine 0.4 mg/dL (0.55-1.02) L 03/20/17 07:30 Creat Clearance w eGFR > 60 (>60) 03/20/17 07:30 Random Glucose 97 mg/dL (74-106) 03/20/17 07:30 Calcium 7.8 mg/dL (8.5-10.1) L 03/20/17 07:30 Total Bilirubin 0.3 mg/dL (0.2-1.0) 03/20/17 07:30 AST 22 U/L (15-37) 03/20/17 07:30 ALT 21 U/L (12-78) 03/20/17 07:30 Alkaline Phosphatase 71 U/L (45-117) 03/20/17 07:30 Total Protein 5.6 g/dl (6.4-8.2) L 03/20/17 07:30 Albumin 2.4 g/dl (3.4-5.0) L 03/20/17 07:30 Microbiology 03/18/17 20:00 Blood - Peripheral Venous Blood Culture - Preliminary NO GROWTH OBTAINED AFTER 48 HOURS, INCUBATION TO CONTINUE FOR 3 DAYS. 03/18/17 20:00 Blood - Peripheral Venous Blood Culture - Preliminary NO GROWTH OBTAINED AFTER 48 HOURS, INCUBATION TO CONTINUE FOR 3 DAYS. 03/19/17 19:50 Blood - Peripheral Venous Blood Culture - Preliminary NO GROWTH OBTAINED AFTER 24 HOURS, INCUBATION TO CONTINUE FOR 4 DAYS. 03/19/17 19:50 Blood - Peripheral Venous Blood Culture - Preliminary NO GROWTH OBTAINED AFTER 24 HOURS, INCUBATION TO CONTINUE FOR 4 DAYS. 03/18/17 20:30 Urine - Urine Alas Urine Culture - Preliminary Lactose Fermenting Neg Bacilli Lactobacillus Species Assessment: This is a 56 year old female with PMHx of hyperlipidemia, asthma, seizure disorder, L4-L5 anterolisthesis/instability, and L3-S1 spinal stenosis who was admitted to the hospital on 03/17/[address] Williamson for L3-L5 laminectomies , L3-S1 foraminal decompressions, L3/4 L4/5 L5/S1 posterior lumbar interbody fusion, L3-S1 PISF Plan: 1) Spinal surgery as above - POD #4 - Drain to gravity ONLY - Pain management - Incentive spirometer - Appreciate surgery consult 2) Post-op fever - Re-cultured - UA with 1+ leuks, painful urination - Will start Bactrim, f/u final culture 3) Acute blood loss anemia - 3u PRBC from 03/20 - F/u cbc after 3rd unit 4) Asthma - No evidence of active exacerbation - Continue roflumislast - Continue Tudorza - Continue Singulair - Continue Advair - Continue Albuterol nebs 5) Seizure disorder - Continue Keppra - Continue primidone - Continue ropinirole 6) F/E/N: - Regular diet - Monitor electrolytes 7) Prophylaxis: - SCDs ONLY per surgery 8) Dispo: - Requires continued inpatient care - Will need SNF placement, awaiting evaluation from [facility] CODE STATUS: FULL CODE Visit type - Emergency Visit Emergency Visit: Yes ED Registration Date: 03/17/17 Care time: The patient presented to the Emergency Department on the above date and was hospitalized for further evaluation of their emergent condition. - New Patient This patient is new to me today: No - Critical Care Critical Care patient: No
[2017-03-21] MEDS: PRIMIDONE 250 MG TABLET PO SCH (10:13)
[2017-03-21] MEDS: BUDESONIDE/FORMETEROL FUMARATE 160/4.5 mcg INHALER IH SCH ×2 (10:13→21:10)
[2017-03-21] MEDS ORDERED: PT OWN MED DRAWER 7, Y5N ONE (10:16)
[2017-03-21] MEDS: TIOTROPIUM BROMIDE 18 MCG/INH (DEVICE W/ 5 CAPSULES) IH SCH (10:40)
[2017-03-21] MEDS: levETIRAcetam 250 MG TABLET (FP) PO SCH (10:41)
[2017-03-21] MEDS: SULFAMETHOXAZOLE/TRIMETHOPRIM 800MG/160MG D.S. TABLET PO SCH ×2 (10:41→21:07)
[2017-03-21] MEDS: ACETAMINOPHEN 325 MG TABLET (FP) PO PRN (10:42)
[2017-03-21 11:22] LABS: HEMATOCRIT 37.5 % (32.4-45.2); HEMOGLOBIN 12.6 GM/dL (10.7-15.3); MCH 29.6 pg (25.7-33.7); MCHC 33.6 g/dl (32.0-36.0); MEAN CELL VOLUME 87.9 fl (80-96); MEAN PLT VOLUME 7.6 fl (7.5-11.1); PLATELET COUNT 317 K/MM3 (134-434); RBC 4.26 M/mm3 (3.60-5.2); WHITE BLOOD COUNT 13.2 K/mm3 (4.0-10.0)
[2017-03-21 11:48] LABS: ALBUMIN 2.8 g/dl (3.4-5.0); ANION GAP 11 (8-16); BLOOD UREA NITROGEN 8 mg/dL (7-18); CALCIUM 8.2 mg/dL (8.5-10.1); CHLORIDE 97 mmol/L (98-107); CO2 29 mmol/L (21-32); GLUCOSE,RANDOM 60 mg/dL (74-106); POTASSIUM 3.4 mmol/L (3.5-5.1); SODIUM 137 mmol/L (136-145)
[2017-03-21 11:52] LABS: ALK PHOS 80 U/L (45-117); BILIRUBIN,TOTAL 0.7 mg/dL (0.2-1.0); CREATININE 0.8 mg/dL (0.55-1.02); SGOT/AST 27 U/L (15-37); SGPT/ALT 27 U/L (12-78); TOT PROT 6.7 g/dl (6.4-8.2)
[2017-03-21] MEDS: POLYETHYLENE GLYCOL 3350 119 GM BTL PO SCH (11:59)
[2017-03-21] MEDS ORDERED: POTASSIUM CHLORIDE TABS 20 MEQ TABLET.ER (FP) PO ONE (14:22)
--- NOTE | 2017-03-21 16:26 | PN ---
Progress Note (short form) - Note Progress Note: 56F s/p L3, L4, L5 laminectomies, L3-S1 foraminal decompressions, L3/4, L4/5, L5 /S1 PLIF, & L3-S1 PISF POD #4. Pt. received 3U PRBC since last night ~7pm. Pt. reports pain not adequately controlled. (-) Overnight history of headaches, chest pain, shortness of breath, nausea, vomiting, chills, & sweats. (+) Voiding; (+) Flatus; (-) BM. All labs and vitals reviewed. Apyrexic. H/H: 12.6/37.5. (+) UCx: E. Coli. PE: AAO x 3, NAD. Spine: Dressing C/D/I. Drain inact & in place. Low output per shift. Drain removed on rounds. B/L LE sensorimotor status intact. 56F s/p L3, L4, L5 laminectomies, L3-S1 foraminal decompressions, L3/4, L4/5, L5 /S1 PLIF, & L3-S1 PISF POD #4. -Pain control. -Incentive spirometry/aggressive pulmonary toilet. -Mechanical DVT PPx. only. -PT/OT/Rehab, OOB. -WBAT B/L LE. -Abx for UTI as per medical team. -Care per primary medical team. -Discharge planning: Pt. would like to be discharged to [facility].
[2017-03-21] MEDS: LORazepam 2 MG/ML SDV VIAL IM PRN (18:55)
[2017-03-21] MEDS: SENNOSIDES 8.6MG TABLET (FP) PO SCH (21:07)
[2017-03-21] MEDS: MONTELUKAST NA 10 MG TABLET PO SCH (21:07)
[2017-03-21] MEDS: oxyCODONE HCL 10 MG SUSTAINED ACTING TABLET PO SCH (21:08)
[2017-03-21] MEDS: rOPINIRole HCL 3 MG TABLET PO SCH (21:10)
[2017-03-22] MEDS: oxyCODONE HCL 5 MG TABLET PO PRN ×5 (05:58→23:25)
[2017-03-22] MEDS: DOCUSATE SODIUM 100 MG CAPSULE (FP) PO SCH ×3 (05:58→21:43)
[2017-03-22] MEDS: NAPH,MB-DB/K PH,MBDB POWDER PACKET PO SCH ×3 (06:00→21:44)
[2017-03-22] MEDS: ALBUTEROL SO4 0.083% IH SOL 2.5 MG/3 ML VIAL.NEB. NEB SCH ×4 (07:55→20:52)
[2017-03-22 08:15] LABS: HEMATOCRIT 34.1 % (32.4-45.2); HEMOGLOBIN 11.5 GM/dL (10.7-15.3); MCHC 33.7 g/dl (32.0-36.0); MEAN CELL VOLUME 89.2 fl (80-96); MEAN PLT VOLUME 7.3 fl (7.5-11.1); PLATELET COUNT 314 K/MM3 (134-434); RBC 3.83 M/mm3 (3.60-5.2); RDW 15.2 % (11.6-15.6); WHITE BLOOD COUNT 10.7 K/mm3 (4.0-10.0)
[2017-03-22] MEDS: LORazepam 2 MG/ML SDV VIAL IM PRN (08:32)
[2017-03-22] MEDS: ACETAMINOPHEN 325 MG TABLET (FP) PO PRN ×2 (08:33→23:19)
[2017-03-22 08:48] LABS: ANION GAP 9 (8-16); BLOOD UREA NITROGEN 9 mg/dL (7-18); CALCIUM 7.8 mg/dL (8.5-10.1); CHLORIDE 103 mmol/L (98-107); CO2 26 mmol/L (21-32); CREATININE 0.6 mg/dL (0.55-1.02); GLUCOSE,RANDOM 86 mg/dL (74-106); POTASSIUM 4.3 mmol/L (3.5-5.1); SODIUM 138 mmol/L (136-145)
[2017-03-22] MEDS ORDERED: PT OWN MED DRAWER 7, Y5N ONE ×3 (09:02→22:56)
[2017-03-22] MEDS: levETIRAcetam 250 MG TABLET (FP) PO SCH (09:05)
[2017-03-22] MEDS: SULFAMETHOXAZOLE/TRIMETHOPRIM 800MG/160MG D.S. TABLET PO SCH (09:05)
[2017-03-22] MEDS: oxyCODONE HCL 10 MG SUSTAINED ACTING TABLET PO SCH ×2 (09:06→21:43)
[2017-03-22] MEDS: TIOTROPIUM BROMIDE 18 MCG/INH (DEVICE W/ 5 CAPSULES) IH SCH (09:07)
[2017-03-22] MEDS: PRIMIDONE 250 MG TABLET PO SCH (09:07)
[2017-03-22] MEDS: POLYETHYLENE GLYCOL 3350 119 GM BTL PO SCH (09:07)
[2017-03-22] MEDS: BUDESONIDE/FORMETEROL FUMARATE 160/4.5 mcg INHALER IH SCH ×2 (09:08→21:44)
--- NOTE | 2017-03-22 15:22 | PN ---
Progress Note (short form) - Note Progress Note: Subjective: The patient was seen and examined at the bedside, she states she is feeling better today Current Medications Generic Name Dose Route Start Last Admin Trade Name Freq PRN Reason Stop Dose Admin Acetaminophen 650 mg 03/19/17 17:15 03/22/17 08:33 Tylenol - PO 650 mg Q6H PRN Administration MODERATE PAIN Albuterol Sulfate 1 amp 03/19/17 16:00 03/22/17 11:32 Ventolin 0.083% Nebulizer Soln - NEB 1 amp RQID KAMI Administration Albuterol Sulfate 2 puff 03/19/17 15:28 Ventolin Hfa Inhaler - IH Q6H PRN SHORT OF BREATH/WHEEZING Budesonide/Formoterol Fumarate 2 puff 03/19/17 22:00 03/22/17 09:08 Symbicort 160/4.5mcg - IH 2 puff BID KAMI Administration Docusate Sodium 100 mg 03/19/17 22:00 03/22/17 14:46 Colace - PO 100 mg TID KAMI Administration Levetiracetam 250 mg 03/20/17 10:00 03/22/17 09:05 Keppra - PO 250 mg DAILY KAMI Administration Lorazepam 1 mg 03/21/17 16:30 03/22/17 08:32 Ativan Injection - IM 1 mg Q8H PRN Administration MUSCLE SPASMS Montelukast Sodium 10 mg 03/19/17 22:00 03/21/17 21:07 Singulair - PO 10 mg HS KAMI Administration Nitrofurantoin Macrocrystals 100 mg 03/22/17 18:00 Macrodantin - PO Q6HPO KAMI Ondansetron HCl 4 mg 03/19/17 15:28 Zofran Injection IVPUSH Q6H PRN NAUSEA AND/OR VOMITING Oxycodone HCl 5 mg 03/21/17 11:27 03/22/17 10:42 Roxicodone - PO 5 mg Q4H PRN Administration PAIN LEVEL 4 - 6 Oxycodone HCl 10 mg 03/21/17 11:27 03/22/17 15:11 Roxicodone - PO 10 mg Q4H PRN Administration PAIN LEVEL 7 - 10 Oxycodone HCl 10 mg 03/21/17 22:00 01/20/18 09:06 Oxycontin - PO 10 mg BID KAMI Administration Polyethylene Glycol 17 gm 03/21/17 11:30 03/22/17 09:07 Miralax (For Daily Use) - PO 17 gm DAILY KAMI Administration Potassium Phos/Sodium Phos 2 packet 03/19/17 22:00 03/22/17 14:47 Phos-Nak Packet - PO 2 packet TID KAMI Administration Primidone 250 mg 03/20/17 10:00 03/22/17 09:07 Mysoline - PO 250 mg DAILY KAMI Administration Promethazine HCl 12.5 mg 03/19/17 15:28 Phenergan Injection - IVPUSH Q6H PRN NAUSEA-FOR RESCUE AFTER 15 MIN Ropinirole HCl 3 mg 03/19/17 22:00 03/21/17 21:10 Requip - PO 3 mg HS KAMI Administration Senna 2 tab 03/19/17 22:00 03/21/17 21:07 Senna - PO 2 tab HS KAMI Administration Tiotropium [place] 1 puff 03/20/17 10:00 03/22/17 09:07 Spiriva - IH 1 puff DAILY KAMI Administration Objective: Vital Signs Period Temp Pulse Resp BP Sys/Chowdary Pulse Ox Last 24 Hr 98.1 F-98.9 F 78-83 18-20 107-110/58-67 96-98 Physical Exam: General: NAD, A&Ox3 Lungs: CTA bilaterally Heart: RRR, S1S2 MSK: Midline back dressing, c/d/i Ext: Warm, well-perfused. 2+ DP/PT bilaterally CBCD WBC 10.7 K/mm3 (4.0-10.0) H 03/22/17 07:00 RBC 3.83 M/mm3 (3.60-5.2) 03/22/17 07:00 Hgb 11.5 GM/dL (10.7-15.3) 03/22/17 07:00 Hct 34.1 % (32.4-45.2) 03/22/17 07:00 MCV 89.2 fl (80-96) 03/22/17 07:00 MCHC 33.7 g/dl (32.0-36.0) 03/22/17 07:00 RDW 15.2 % (11.6-15.6) 03/22/17 07:00 Plt Count 314 K/MM3 (134-434) 03/22/17 07:00 MPV 7.3 fl (7.5-11.1) L 03/22/17 07:00 CMP Sodium 138 mmol/L (136-145) 03/22/17 07:00 Potassium 4.3 mmol/L (3.5-5.1) 03/22/17 07:00 Chloride 103 mmol/L (98-107) 03/22/17 07:00 Carbon Dioxide 26 mmol/L (21-32) 03/22/17 07:00 Anion Gap 9 (8-16) 03/22/17 07:00 BUN 9 mg/dL (7-18) 03/22/17 07:00 Creatinine 0.6 mg/dL (0.55-1.02) 03/22/17 07:00 Creat Clearance w eGFR > 60 (>60) 03/21/17 11:05 Random Glucose 86 mg/dL (74-106) 03/22/17 07:00 Calcium 7.8 mg/dL (8.5-10.1) L 03/22/17 07:00 Total Bilirubin 0.7 mg/dL (0.2-1.0) D 03/21/17 11:05 AST 27 U/L (15-37) 03/21/17 11:05 ALT 27 U/L (12-78) 03/21/17 11:05 Alkaline Phosphatase 80 U/L (45-117) 03/21/17 11:05 Total Protein 6.7 g/dl (6.4-8.2) 03/21/17 11:05 Albumin 2.8 g/dl (3.4-5.0) L 03/21/17 11:05 Microbiology 03/19/17 19:00 Urine - Urine Clean Catch Urine Culture - Final Escherichia Coli Enterococcus Faecalis 03/18/17 20:00 Blood - Peripheral Venous Blood Culture - Preliminary NO GROWTH OBTAINED AFTER 72 HOURS, INCUBATION TO CONTINUE FOR 2 DAYS. 03/18/17 20:00 Blood - Peripheral Venous Blood Culture - Preliminary NO GROWTH OBTAINED AFTER 72 HOURS, INCUBATION TO CONTINUE FOR 2 DAYS. 03/19/17 19:50 Blood - Peripheral Venous Blood Culture - Preliminary NO GROWTH OBTAINED AFTER 48 HOURS, INCUBATION TO CONTINUE FOR 3 DAYS. 03/19/17 19:50 Blood - Peripheral Venous Blood Culture - Preliminary NO GROWTH OBTAINED AFTER 48 HOURS, INCUBATION TO CONTINUE FOR 3 DAYS. 03/18/17 20:30 Urine - Urine Alas Urine Culture - Final Escherichia Coli Lactobacillus Species Assessment: This is a 56 year old female with PMHx of hyperlipidemia, asthma, seizure disorder, L4-L5 anterolisthesis/instability, and L3-S1 spinal stenosis who was admitted to the hospital on 03/17/[address] Williamson for L3-L5 laminectomies , L3-S1 foraminal decompressions, L3/4 L4/5 L5/S1 posterior lumbar interbody fusion, L3-S1 PISF Plan: 1) Spinal surgery as above - POD #5 - Bacilio drain removed yesterday - Pain management - Incentive spirometer - Appreciate surgery consult 2) UTI - Bactrim switched to Macrodantin today based on urine culture and sensitivities 3) Acute blood loss anemia - 3u PRBC from 03/20 4) Asthma - No evidence of active exacerbation - Continue roflumislast - Continue Tudorza - Continue Singulair - Continue Advair - Continue Albuterol nebs 5) Seizure disorder - Continue Keppra - Continue primidone - Continue ropinirole 6) F/E/N: - Regular diet - Monitor electrolytes 7) Prophylaxis: - SCDs ONLY per surgery 8) Dispo: - Requires continued inpatient care - Will need SNF placement, awaiting evaluation from [facility] CODE STATUS: FULL CODE Visit type - Emergency Visit Emergency Visit: Yes ED Registration Date: 03/17/17 Care time: The patient presented to the Emergency Department on the above date and was hospitalized for further evaluation of their emergent condition. - New Patient This patient is new to me today: No - Critical Care Critical Care patient: No
[2017-03-22] MEDS ORDERED: NITROFURANTOIN MACROCRYSTAL 50 MG CAPSULE (FP) PO SCH (18:00)
[2017-03-22] MEDS: NITROFURANTOIN MACROCRYSTAL 50 MG CAPSULE (FP) PO SCH ×2 (18:33→23:27)
[2017-03-22] MEDS: SENNOSIDES 8.6MG TABLET (FP) PO SCH (21:44)
[2017-03-22] MEDS: rOPINIRole HCL 3 MG TABLET PO SCH (21:44)
[2017-03-22] MEDS: MONTELUKAST NA 10 MG TABLET PO SCH (21:44)
[2017-03-23] MEDS: oxyCODONE HCL 5 MG TABLET PO PRN (05:22)
[2017-03-23] MEDS: DOCUSATE SODIUM 100 MG CAPSULE (FP) PO SCH ×3 (06:13→21:52)
[2017-03-23] MEDS: NITROFURANTOIN MACROCRYSTAL 50 MG CAPSULE (FP) PO SCH ×3 (06:13→19:11)
[2017-03-23] MEDS: NAPH,MB-DB/K PH,MBDB POWDER PACKET PO SCH ×3 (06:14→21:52)
[2017-03-23] MEDS: ALBUTEROL SO4 0.083% IH SOL 2.5 MG/3 ML VIAL.NEB. NEB SCH ×4 (08:30→21:10)
[2017-03-23] MEDS ORDERED: PT OWN MED DRAWER 7, Y5N ONE ×4 (11:13→21:41)
[2017-03-23] MEDS: PRIMIDONE 250 MG TABLET PO SCH (11:47)
[2017-03-23] MEDS: TIOTROPIUM BROMIDE 18 MCG/INH (DEVICE W/ 5 CAPSULES) IH SCH (11:47)
[2017-03-23] MEDS: oxyCODONE HCL 10 MG SUSTAINED ACTING TABLET PO SCH ×2 (11:48→21:51)
[2017-03-23] MEDS: levETIRAcetam 250 MG TABLET (FP) PO SCH (11:48)
[2017-03-23] MEDS: BUDESONIDE/FORMETEROL FUMARATE 160/4.5 mcg INHALER IH SCH ×2 (11:49→21:53)
[2017-03-23] MEDS: POLYETHYLENE GLYCOL 3350 119 GM BTL PO SCH (11:49)
--- NOTE | 2017-03-23 12:36 | PN ---
Progress Note (short form) - Note Progress Note: 56F s/p L3, L4, L5 laminectomies, L3-S1 foraminal decompressions, L3/4, L4/5, L5 /S1 PLIF, & L3-S1 PISF POD #5. Pt. received 3U PRBC since last night ~7pm. Pt. reports pain not adequately controlled. (-) Overnight history of headaches, chest pain, shortness of breath, nausea, vomiting, chills, & sweats. (+) Voiding; (+) Flatus; (+) BM. All labs and vitals reviewed. Apyrexic. (+) UCx: E. Coli. PE: AAO x 3, NAD. Spine: Dressing C/D/I. B/L LE sensorimotor status intact. 56F s/p L3, L4, L5 laminectomies, L3-S1 foraminal decompressions, L3/4, L4/5, L5 /S1 PLIF, & L3-S1 PISF POD #5. -Pain control. -Incentive spirometry/aggressive pulmonary toilet. -Mechanical DVT PPx. only. -PT/OT/Rehab, OOB. -WBAT B/L LE. -Abx for UTI as per medical team. -Care per primary medical team. -Discharge planning: Pt. would like to be discharged to [facility] facility. Dino Williamson MD (Orthopaedic Surgery)
[2017-03-23] MEDS: LORazepam 2 MG/ML SDV VIAL IM PRN (14:32)
--- NOTE | 2017-03-23 20:03 | PN ---
Progress Note (short form) - Note Progress Note: Subjective: The patient was seen and examined at the bedside, she states she is feeling better today Current Medications Generic Name Dose Route Start Last Admin Trade Name Jasvirq PRN Reason Stop Dose Admin Acetaminophen 650 mg 03/19/17 17:15 03/22/17 23:19 Tylenol - PO 650 mg Q6H PRN Administration MODERATE PAIN Albuterol Sulfate 1 amp 03/19/17 16:00 03/23/17 15:35 Ventolin 0.083% Nebulizer Soln - NEB Not Given RQID KAMI Albuterol Sulfate 2 puff 03/19/17 15:28 Ventolin Hfa Inhaler - IH Q6H PRN SHORT OF BREATH/WHEEZING Budesonide/Formoterol Fumarate 2 puff 03/19/17 22:00 03/23/17 11:49 Symbicort 160/4.5mcg - IH 2 puff BID KAMI Administration Docusate Sodium 100 mg 03/19/17 22:00 03/23/17 14:34 Colace - PO 100 mg TID KAMI Administration Levetiracetam 250 mg 03/20/17 10:00 03/23/17 11:48 Keppra - PO 250 mg DAILY KAMI Administration Lorazepam 1 mg 03/21/17 16:30 03/23/17 14:32 Ativan Injection - IM 1 mg Q8H PRN Administration MUSCLE SPASMS Montelukast Sodium 10 mg 03/19/17 22:00 03/22/17 21:44 Singulair - PO 10 mg HS KAMI Administration Nitrofurantoin Macrocrystals 100 mg 03/22/17 18:00 03/23/17 19:11 Macrodantin - PO 100 mg Q6HPO KAMI Administration Ondansetron HCl 4 mg 03/19/17 15:28 Zofran Injection IVPUSH Q6H PRN NAUSEA AND/OR VOMITING Oxycodone HCl 5 mg 03/21/17 11:27 03/22/17 19:11 Roxicodone - PO 5 mg Q4H PRN Administration PAIN LEVEL 4 - 6 Oxycodone HCl 10 mg 03/21/17 11:27 03/23/17 05:22 Roxicodone - PO 10 mg Q4H PRN Administration PAIN LEVEL 7 - 10 Oxycodone HCl 10 mg 03/21/17 22:00 03/23/17 11:48 Oxycontin - PO 10 mg BID KAMI Administration Polyethylene Glycol 17 gm 03/21/17 11:30 03/23/17 11:49 Miralax (For Daily Use) - PO Not Given DAILY KAMI Potassium Phos/Sodium Phos 2 packet 03/19/17 22:00 03/23/17 14:34 Phos-Nak Packet - PO 2 packet TID KAMI Administration Primidone 250 mg 03/20/17 10:00 03/23/17 11:47 Mysoline - PO 250 mg DAILY KAMI Administration Promethazine HCl 12.5 mg 03/19/17 15:28 Phenergan Injection - IVPUSH Q6H PRN NAUSEA-FOR RESCUE AFTER 15 MIN Ropinirole HCl 3 mg 03/19/17 22:00 03/22/17 21:44 Requip - PO 3 mg HS KAMI Administration Senna 2 tab 03/19/17 22:00 03/22/17 21:44 Senna - PO 2 tab HS KAMI Administration Tiotropium [place] 1 puff 03/20/17 10:00 03/23/17 11:47 Spiriva - IH 1 puff DAILY KAMI Administration Objective: Vital Signs Period Temp Pulse Resp BP Sys/Chowdary Pulse Ox Last 24 Hr 98.2 F-99.8 F 80-96 19-22 101-126/68-75 96-97 Physical Exam: General: NAD, A&Ox3 Lungs: CTA bilaterally Heart: RRR, S1S2 MSK: Midline back dressing, lower portion is rolled up Ext: Warm, well-perfused. 2+ DP/PT bilaterally CBCD WBC 10.7 K/mm3 (4.0-10.0) H 03/22/17 07:00 RBC 3.83 M/mm3 (3.60-5.2) 03/22/17 07:00 Hgb 11.5 GM/dL (10.7-15.3) 03/22/17 07:00 Hct 34.1 % (32.4-45.2) 03/22/17 07:00 MCV 89.2 fl (80-96) 03/22/17 07:00 MCHC 33.7 g/dl (32.0-36.0) 03/22/17 07:00 RDW 15.2 % (11.6-15.6) 03/22/17 07:00 Plt Count 314 K/MM3 (134-434) 03/22/17 07:00 MPV 7.3 fl (7.5-11.1) L 03/22/17 07:00 CMP Sodium 138 mmol/L (136-145) 03/22/17 07:00 Potassium 4.3 mmol/L (3.5-5.1) 03/22/17 07:00 Chloride 103 mmol/L (98-107) 03/22/17 07:00 Carbon Dioxide 26 mmol/L (21-32) 03/22/17 07:00 Anion Gap 9 (8-16) 03/22/17 07:00 BUN 9 mg/dL (7-18) 03/22/17 07:00 Creatinine 0.6 mg/dL (0.55-1.02) 03/22/17 07:00 Creat Clearance w eGFR > 60 (>60) 03/21/17 11:05 Random Glucose 86 mg/dL (74-106) 03/22/17 07:00 Calcium 7.8 mg/dL (8.5-10.1) L 03/22/17 07:00 Total Bilirubin 0.7 mg/dL (0.2-1.0) D 03/21/17 11:05 AST 27 U/L (15-37) 03/21/17 11:05 ALT 27 U/L (12-78) 03/21/17 11:05 Alkaline Phosphatase 80 U/L (45-117) 03/21/17 11:05 Total Protein 6.7 g/dl (6.4-8.2) 03/21/17 11:05 Albumin 2.8 g/dl (3.4-5.0) L 03/21/17 11:05 Microbiology 03/19/17 19:50 Blood - Peripheral Venous Blood Culture - Preliminary NO GROWTH OBTAINED AFTER 96 HOURS, INCUBATION TO CONTINUE FOR 1 DAYS. 03/19/17 19:50 Blood - Peripheral Venous Blood Culture - Preliminary NO GROWTH OBTAINED AFTER 96 HOURS, INCUBATION TO CONTINUE FOR 1 DAYS. 03/18/17 20:00 Blood - Peripheral Venous Blood Culture - Preliminary NO GROWTH OBTAINED AFTER 96 HOURS, INCUBATION TO CONTINUE FOR 1 DAYS. 03/18/17 20:00 Blood - Peripheral Venous Blood Culture - Preliminary NO GROWTH OBTAINED AFTER 96 HOURS, INCUBATION TO CONTINUE FOR 1 DAYS. 03/19/17 19:00 Urine - Urine Clean Catch Urine Culture - Final Escherichia Coli Enterococcus Faecalis 03/18/17 20:30 Urine - Urine Alas Urine Culture - Final Escherichia Coli Lactobacillus Species Assessment: This is a 56 year old female with PMHx of hyperlipidemia, asthma, seizure disorder, L4-L5 anterolisthesis/instability, and L3-S1 spinal stenosis who was admitted to the hospital on 03/17/[address] Williamson for L3-L5 laminectomies , L3-S1 foraminal decompressions, L3/4 L4/5 L5/S1 posterior lumbar interbody fusion, L3-S1 PISF Plan: 1) Spinal surgery as above - POD #6 - Bacilio drain removed 03/21 - Pain management - Incentive spirometer - Appreciate surgery consult 2) UTI - Continue Macrodantin 3) Acute blood loss anemia - 3u PRBC from 03/20 4) Asthma - No evidence of active exacerbation - Continue roflumislast - Continue Tudorza - Continue Singulair - Continue Advair - Continue Albuterol nebs 5) Seizure disorder - Continue Keppra - Continue primidone - Continue ropinirole 6) F/E/N: - Regular diet - Monitor electrolytes 7) Prophylaxis: - SCDs ONLY per surgery 8) Dispo: - Requires continued inpatient care - Will need SNF placement, awaiting evaluation from [facility] CODE STATUS: FULL CODE Visit type - Emergency Visit Emergency Visit: Yes ED Registration Date: 03/17/17 Care time: The patient presented to the Emergency Department on the above date and was hospitalized for further evaluation of their emergent condition. - New Patient This patient is new to me today: No - Critical Care Critical Care patient: No
[2017-03-23] MEDS: rOPINIRole HCL 3 MG TABLET PO SCH (21:52)
[2017-03-23] MEDS: SENNOSIDES 8.6MG TABLET (FP) PO SCH (21:52)
[2017-03-23] MEDS: MONTELUKAST NA 10 MG TABLET PO SCH (21:53)
[2017-03-23] MEDS: ACETAMINOPHEN 325 MG TABLET (FP) PO PRN (22:26)
[2017-03-24] MEDS: NITROFURANTOIN MACROCRYSTAL 50 MG CAPSULE (FP) PO SCH ×5 (00:01→23:02)
[2017-03-24] MEDS: DOCUSATE SODIUM 100 MG CAPSULE (FP) PO SCH ×3 (05:53→22:57)
[2017-03-24] MEDS: NAPH,MB-DB/K PH,MBDB POWDER PACKET PO SCH ×3 (05:53→22:58)
[2017-03-24] MEDS: oxyCODONE HCL 5 MG TABLET PO PRN ×3 (07:19→18:05)
[2017-03-24] MEDS: ALBUTEROL SO4 0.083% IH SOL 2.5 MG/3 ML VIAL.NEB. NEB SCH ×2 (07:51→11:14)
[2017-03-24] MEDS ORDERED: PT OWN MED DRAWER 7, Y5N ONE ×5 (10:41→17:52)
[2017-03-24] MEDS: levETIRAcetam 250 MG TABLET (FP) PO SCH (10:53)
[2017-03-24] MEDS: BUDESONIDE/FORMETEROL FUMARATE 160/4.5 mcg INHALER IH SCH ×2 (10:53→22:58)
[2017-03-24] MEDS: TIOTROPIUM BROMIDE 18 MCG/INH (DEVICE W/ 5 CAPSULES) IH SCH (10:53)
[2017-03-24] MEDS: oxyCODONE HCL 10 MG SUSTAINED ACTING TABLET PO SCH ×2 (10:54→22:57)
[2017-03-24] MEDS: PRIMIDONE 250 MG TABLET PO SCH (10:55)
[2017-03-24] MEDS: POLYETHYLENE GLYCOL 3350 119 GM BTL PO SCH (11:00)
--- NOTE | 2017-03-24 11:17 | PN ---
Physical Exam: SUBJECTIVE: Patient seen and examined at the bedside. States she has intermittent back pain, but better controlled. OBJECTIVE: Vital Signs Period Temp Pulse Resp BP Sys/Chowdary Pulse Ox Last 24 Hr 98.1 F-100.1 F 75-100 20-22 107-116/66-72 97 GENERAL: The patient is awake, alert, and fully oriented, in no acute distress. HEAD: Normal with no signs of trauma. EYES: PERRL, extraocular movements intact, sclera anicteric, conjunctiva clear. No ptosis. ENT: Ears normal, nares patent, oropharynx clear without exudates, moist mucous membranes. NECK: Trachea midline, full range of motion, supple. LUNGS: Breath sounds equal, clear to auscultation bilaterally, no wheezes, no crackles, no accessory muscle use. ABDOMEN: Soft, nontender, nondistended, normoactive bowel sounds, no guarding, no rebound, no hepatosplenomegaly, no masses. Laboratory Results - last 24 hr 03/20/17 16:00 Blood Type A NEGATIVE Antibody Screen Negative Crossmatch See Detail Active Medications Generic Name Dose Route Start Last Admin Trade Name Freq PRN Reason Stop Dose Admin Acetaminophen 650 mg 03/19/17 17:15 03/23/17 22:26 Tylenol - PO 650 mg Q6H PRN Administration MODERATE PAIN Albuterol Sulfate 1 amp 03/19/17 16:00 03/24/17 11:14 Ventolin 0.083% Nebulizer Soln - NEB Not Given RQID KAMI Albuterol Sulfate 2 puff 03/19/17 15:28 Ventolin Hfa Inhaler - IH Q6H PRN SHORT OF BREATH/WHEEZING Budesonide/Formoterol Fumarate 2 puff 03/19/17 22:00 03/24/17 10:53 Symbicort 160/4.5mcg - IH 2 puff BID KAMI Administration Docusate Sodium 100 mg 03/19/17 22:00 03/24/17 05:53 Colace - PO 100 mg TID KAMI Administration Levetiracetam 250 mg 03/20/17 10:00 03/24/17 10:53 Keppra - PO 250 mg DAILY KAMI Administration Lorazepam 1 mg 03/21/17 16:30 03/23/17 14:32 Ativan Injection - IM 1 mg Q8H PRN Administration MUSCLE SPASMS Montelukast Sodium 10 mg 03/19/17 22:00 03/23/17 21:53 Singulair - PO 10 mg HS KAMI Administration Nitrofurantoin Macrocrystals 100 mg 03/22/17 18:00 03/24/17 05:53 Macrodantin - PO 100 mg Q6HPO KAMI Administration Ondansetron HCl 4 mg 03/19/17 15:28 Zofran Injection IVPUSH Q6H PRN NAUSEA AND/OR VOMITING Oxycodone HCl 5 mg 03/21/17 11:27 03/22/17 19:11 Roxicodone - PO 5 mg Q4H PRN Administration PAIN LEVEL 4 - 6 Oxycodone HCl 10 mg 03/21/17 11:27 03/24/17 07:19 Roxicodone - PO 10 mg Q4H PRN Administration PAIN LEVEL 7 - 10 Oxycodone HCl 10 mg 03/21/17 22:00 03/24/17 10:54 Oxycontin - PO 10 mg BID KAMI Administration Polyethylene Glycol 17 gm 03/21/17 11:30 03/24/17 11:00 Miralax (For Daily Use) - PO Not Given DAILY KAMI Potassium Phos/Sodium Phos 2 packet 03/19/17 22:00 03/24/17 05:53 Phos-Nak Packet - PO 2 packet TID KAMI Administration Primidone 250 mg 03/20/17 10:00 03/24/17 10:55 Mysoline - PO 250 mg DAILY KAMI Administration Promethazine HCl 12.5 mg 03/19/17 15:28 Phenergan Injection - IVPUSH Q6H PRN NAUSEA-FOR RESCUE AFTER 15 MIN Ropinirole HCl 3 mg 03/19/17 22:00 03/23/17 21:52 Requip - PO 3 mg HS KAMI Administration Senna 2 tab 03/19/17 22:00 03/23/17 21:52 Senna - PO 2 tab HS KAMI Administration Tiotropium [place] 1 puff 03/20/17 10:00 03/24/17 10:53 Spiriva - IH 1 puff DAILY KAMI Administration ASSESSMENT/PLAN: Pateint is a 56 year-old female with a significant past medical history of HLD, asthma, seizure disorder and L4-L5 anterolisthesis/instability, and L3-S1 spinal stenosis. Patient was admitted to the hospital on 03/17/[address] Juvencio Williamson and s/p L3, L4, L5 laminectomies, L3-S1 foraminal decompressions, L3/ 4, L4/5, L5/S1 PLIF, & L3-S1 PISF POD #7. Spinal surgery, POD #7 Pain management Surgery following Awaiting rehab placement at [facility] likely tomorrow : UTI On Macrodantin 100mg PO q6 Continue for a total of 6 more days Repeat UA and UC as outpatient Pulmonary Asthma, history Not in acute exacerbation Continue home meds duonebs prn oxygen prn Neuro: Seizure disorder history On Keppra, Mysolin, Requip Seizure precautions F.E.N. Fluids: tolerating PO Electrolytes: monitor Nutrition: regular diet Prohy: SCDS only as per surger GI: deferred Disposition: Awaiting bed placement to [facility]. full code.
[2017-03-24] MEDS: LORazepam 2 MG/ML SDV VIAL IM PRN (12:26)
--- NOTE | 2017-03-24 17:28 | PN ---
Progress Note (short form) - Note Progress Note: 56F s/p L3, L4, L5 laminectomies, L3-S1 foraminal decompressions, L3/4, L4/5, L5 /S1 PLIF, & L3-S1 PISF POD #7. Pain well controlled. (-) Overnight history of headaches, chest pain, shortness of breath, nausea, vomiting, chills, & sweats. (+) Voiding; (+) Flatus; (+) BM. All labs and vitals reviewed. Apyrexic. (+) UCx: E. Coli. PE: AAO x 3, NAD. Spine: Dressing C/D/I. B/L LE sensorimotor status intact. 56F s/p L3, L4, L5 laminectomies, L3-S1 foraminal decompressions, L3/4, L4/5, L5 /S1 PLIF, & L3-S1 PISF POD #7. -Pain control. -Incentive spirometry/aggressive pulmonary toilet. -Mechanical DVT PPx. only. -PT/OT/Rehab, OOB. -WBAT B/L LE. -Abx for UTI as per medical team. -Care per primary medical team. -Discharge planning: Pt. would like to be discharged to [facility] facility. Dino Williamson MD (Orthopaedic Surgery)
[2017-03-24] MEDS: SENNOSIDES 8.6MG TABLET (FP) PO SCH (22:56)
[2017-03-24] MEDS: rOPINIRole HCL 3 MG TABLET PO SCH (22:58)
[2017-03-24] MEDS: MONTELUKAST NA 10 MG TABLET PO SCH (22:58)
[2017-03-25] MEDS: oxyCODONE HCL 5 MG TABLET PO PRN (06:33)
[2017-03-25] MEDS: DOCUSATE SODIUM 100 MG CAPSULE (FP) PO SCH (06:34)
[2017-03-25] MEDS: NITROFURANTOIN MACROCRYSTAL 50 MG CAPSULE (FP) PO SCH ×2 (06:34→11:17)
[2017-03-25] MEDS: NAPH,MB-DB/K PH,MBDB POWDER PACKET PO SCH (06:34)
[2017-03-25 06:38] VITALS: PULSE 72
--- NOTE | 2017-03-25 09:32 | DS ---
Physical Exam: SUBJECTIVE: Patient seen and examined at the bedside. She is for discharge today OBJECTIVE: Vital Signs Period Temp Pulse Resp BP Sys/Chowdary Pulse Ox Last 24 Hr 98.3 F-100.1 F 72-100 20-22 95-112/64-70 99-99 PHYSICAL EXAM GENERAL: The patient is awake, alert, and fully oriented, in no acute distress. HEAD: Normal with no signs of trauma. EYES: PERRL, extraocular movements intact, sclera anicteric, conjunctiva clear. No ptosis. ENT: Ears normal, nares patent, oropharynx clear without exudates, moist mucous membranes. NECK: Trachea midline, full range of motion, supple. LUNGS: Breath sounds equal, clear to auscultation bilaterally, no wheezes, no crackles, no accessory muscle use. ABDOMEN: Soft, nontender, nondistended, normoactive bowel sounds, no guarding, no rebound, no hepatosplenomegaly, no masses. LABS HOSPITAL COURSE: Date of Admission:03/17/17 Date of Discharge: 03/25/17 ASSESSMENT/PLAN: Pateint is a 56 year-old female with a significant past medical history of HLD, asthma, seizure disorder and L4-L5 anterolisthesis/instability, and L3-S1 spinal stenosis. Patient was admitted to the hospital on 03/17/[address] Juvencio Williamson and s/p L3, L4, L5 laminectomies, L3-S1 foraminal decompressions, L3/ 4, L4/5, L5/S1 PLIF, & L3-S1 PISF POD #7. Skeletal: Spinal surgery, POD #8 Pain management with percocet, continue bowel regimen to 1 bowel movement per day Surgery following, cleared for discharge Discharge to [facility] : UTI, acute On Macrodantin 100mg PO q6 Continue for a total of 7 more days through 04/01/2017 Repeat UA and UC as outpatient Pulmonary Asthma, history Not in acute exacerbation Continue home meds duonebs prn oxygen prn Neuro: Seizure disorder history On Keppra, Mysolin, Requip Seizure precautions Disposition: Discharge to [facility]. Medically cleared for discharge. full code. Minutes to complete discharge: 60 Discharge Summary Reason For Visit: SPONDYLOSTHESIS, LUMBAR REGION Current Active Problems Asthma (Acute) Back pain at L4-L5 level (Acute) Combined hyperlipidemia (Acute) Seizure disorder (Acute) Condition: Improved - Instructions Diet, Activity, Other Instructions: Discharge to rehab for continued care. Continue Microdantin for 7 more days for urinary tract infection. Please call us if you have any questions or concerns. [facility] Cindi Maria PRODUCTION ASSISTANT [phone] Referrals: Dino Williamson MD [Staff Physician] - Disposition: LONG TERM FACILITY - Home Medications Comprehensive Discharge Medication List: Ambulatory Orders Aclidinium [place] [Tudorza Pressair] 400 mcg IH DAILY 03/14/17 Albuterol 0.083% Nebulizer [place] [Ventolin 0.083% Nebulizer Soln -] 1 neb NEB QID 03/14/17 Albuterol Sulfate Inhaler - [Ventolin HFA Inhaler -] 2 inh PO Q6H 03/14/17 Cyclobenzaprine HCl 10 mg PO HS PRN 03/14/17 Folic Acid 1 mg PO DAILY 03/14/17 Levetiracetam [Keppra] 250 mg PO DAILY 03/14/17 Montelukast Sodium [Singulair] 10 mg PO DAILY 03/14/17 Oxycodone HCl/Acetaminophen [Percocet 10-325 mg Tablet] 1 each PO BID 03/14/17 Primidone [Mysoline] 250 mg PO DAILY 03/14/17 Roflumilast [Daliresp] 500 mcg PO DAILY 03/14/17 Ropinirole HCl [Requip] 3 mg PO HS 03/14/17 Salmeterol/Fluticasone [Advair 500Mcg/50Mcg -] 1 inh PO BID 03/14/17 Simvastatin 40 mg PO DAILY 03/14/17 Zolpidem Tartrate [Ambien Cr] 12.5 mg PO HS 03/14/17 Acetaminophen [Tylenol .Regular Strength -] 650 mg PO Q6H PRN tablet 03/25/17 Docusate Sodium [Colace -] 100 mg PO TID capsule 03/25/17 Naph,Mb-Db/K pH,Mbdb [PHOS-NaK PACKET -] 2 packet PO TID pow 03/25/17 Sennosides [Senna -] 2 tab PO HS tablet 03/25/17 This patient is new to me today: Yes Date on this admission: 03/25/17 Emergency Visit: Yes ED Registration Date: 03/17/17 Care time: The patient presented to the Emergency Department on the above date and was hospitalized for further evaluation of their emergent condition. Critical Care patient: No - Discharge Referral Referred to [facility] No
[2017-03-25] MEDS: oxyCODONE HCL 10 MG SUSTAINED ACTING TABLET PO SCH (09:51)
[2017-03-25] MEDS: levETIRAcetam 250 MG TABLET (FP) PO SCH (09:52)
[2017-03-25] MEDS: BUDESONIDE/FORMETEROL FUMARATE 160/4.5 mcg INHALER IH SCH (09:54)
[2017-03-25] MEDS: TIOTROPIUM BROMIDE 18 MCG/INH (DEVICE W/ 5 CAPSULES) IH SCH (09:54)
[2017-03-25] MEDS: PRIMIDONE 250 MG TABLET PO SCH (09:55)
[2017-03-25] MEDS: POLYETHYLENE GLYCOL 3350 119 GM BTL PO SCH (10:12)
[2017-03-25] MEDS ORDERED: LIDOCAINE 5% TOPICAL PATCH TP ONE (10:15)
[2017-03-25 11:10] VITALS: BP 110/64; TEMP 99.2
[2017-03-25] MEDS ORDERED: LIDOCAINE PATCH REMOVAL MC ONE (22:00)
== END 2017-03-25 11:46 | DRG 460 ==
LOC: JSAMEDAYSX 06:49 → EDSTATUS 08:00 → JICU 17:40 → J5S 03-19 15:24
PROVIDERS: ADMIT Orthopaedic Surgery Orthopaedic Surgery of the Spine; ATTEND Nurse Practitioner Family
PROC: 0SG10AJ Fusion of 2 or more Lumbar Vertebral Joints with Interbody Fusion Device, Posterior Approach, Anterior Column, Open Approach (ICD-10-PCS; 2017-03-17)
PROC: 0SB40ZZ Excision of Lumbosacral Disc, Open Approach (ICD-10-PCS; 2017-03-17)
PROC: 00QT0ZZ Repair Spinal Meninges, Open Approach (ICD-10-PCS; 2017-03-17)
PROC: 0SG30AJ Fusion of Lumbosacral Joint with Interbody Fusion Device, Posterior Approach, Anterior Column, Open Approach (ICD-10-PCS; principal; 2017-03-17 08:00)
PROC: 30233N1 Transfusion of Nonautologous Red Blood Cells into Peripheral Vein, Percutaneous Approach (ICD-10-PCS; 2017-03-20)
DX: M48.07 Spinal stenosis, lumbosacral region (principal); G96.11 Dural tear; J98.11 Atelectasis; D62 Acute posthemorrhagic anemia; N39.0 Urinary tract infection, site not specified; E83.42 Hypomagnesemia; G40.909 Epilepsy, unspecified, not intractable, without status epilepticus; R50.82 Postprocedural fever; D64.9 Anemia, unspecified; M43.17 Spondylolisthesis, lumbosacral region; E78.2 Mixed hyperlipidemia; E78.5 Hyperlipidemia, unspecified; J45.909 Unspecified asthma, uncomplicated; G25.0 Essential tremor
CPT/HCPCS: 36415; 36430; 71045-TC; 76000-TC-FY; 80048; 80053; 81003; 81015; 83735; 84100; 85025; 85027; 86850; 86900; 86901; 86922; 87040; 87077; 87086; 87186; 88304-TC; 94010; 94640; 94760; 97116-GP; 97161-GP; J1644; P9038; P9058